=== PATIENT | female | born 1930 | race Two or more races ===

== ENCOUNTER 2017-02-05 08:55 | Observation (INO) | payer MEDICARE, BC ==
[~2017-02-05] VITALS: Ht 160 cm; Wt 89.0 kg
[~2017-02-05 08:55] MED LIST: APIX2.5T PO; ATEN50TA PO; ATOR20TA38 PO; CIPR500T4 PO; DOCU100C26 PO; HYDR4TAB PO; METH-493 PO; METR500T PO; PARO10TA76 PO; TRAM50TA2 PO
[2017-02-05 09:05] VITALS: Ht 160 cm; Wt 89.0 kg
[2017-02-05] MEDS ORDERED: CEFTRIAXONE 1 GM/50 ML (PMX) 50 ML IVPB STA (10:16)
[2017-02-05] MEDS ORDERED: AZITHROMYCIN 500MG/NS (PMX) 250 ML IV STA (10:16)
[2017-02-05] MEDS ORDERED: ALBUTEROL 0.083% (NEB) 2.5 MG/3 ML AMP INH ONE (10:30)
[2017-02-05] MEDS ORDERED: IPRATROPIUM (NEB) 0.5 MG/2.5 ML AMP INH ONE (10:30)
[2017-02-05 10:56] LABS: ADD SCAN DIFF NO
[2017-02-05 11:01] LABS: BASOPHILS % 0.2 % (0.0-2.0); EOSINOPHILS % 0.6 % (0.0-7.0); HEMATOCRIT 34.4 % (37.0-47.0); HEMOGLOBIN 11.3 g/dl (12.0-16.0); LYMPHOCYTES # 2.1 10^3/ul (0.8-2.9); LYMPHOCYTES % 42.7 % (15.0-51.0); MEAN CORPUSCULAR HEMOGLOBIN 29.4 pg (29.0-33.0); MEAN CORPUSCULAR HGB CONC 32.8 g/dl (32.0-37.0); MEAN CORPUSCULAR VOLUME 89.6 fl (82.0-101.0); MEAN PLATELET VOLUME 10.4 fl (7.4-10.4); MONOCYTE # 0.4 10^3/ul (0.3-0.9); MONOCYTES % 7.9 % (0.0-11.0); NEUTROPHIL # 2.3 10^3/ul (1.6-7.5); NEUTROPHILS % 48.4 % (39.0-77.0); PLATELET COUNT 255 10^3/UL (140-415); RED BLOOD COUNT 3.84 10^6/ul (4.20-5.40); WHITE BLOOD COUNT 4.8 10^3/ul (4.8-10.8)
[2017-02-05 11:16] LABS: ALBUMIN/GLOBULIN RATIO 1.53; BILIRUBIN,INDIRECT 0.1 mg/dl (0-1.1); BILIRUBIN,TOTAL 0.1 mg/dl (0.2-1.3); CALCIUM 8.5 mg/dl (8.4-10.2); CREATININE 0.6 mg/dl (0.44-1.00); POTASSIUM 4.1 mmol/L (3.5-5.1); TOTAL PROTEIN 6.6 g/dl (6.1-8.1)
[2017-02-05 11:30] LABS: TROPONIN-I 0.052 ng/ml (0.00-0.12)
[2017-02-05] MEDS ORDERED: GABA100C14 PO (11:49)
--- NOTE | 2017-02-05 11:51 | RADRPT ---
PROCEDURE: Chest Radiograph. CLINICAL INDICATION: Shortness of breath TECHNIQUE: Single frontal chest radiograph. COMPARISON: None available FINDINGS: The patient is rotated. Heart size is poorly evaluated but appears grossly within normal limits. A therosclerotic calcifications are present. No infiltrate or effusion is seen. The bones are int act. IMPRESSION: 1. No evidence of acute cardiopulmonary disease. 2. Atherosclerotic vascular disease. RPTAT: KK .Ambrocio Townsend MD, MD Date Time Electronically viewed and signed by .Ambrocio Townsend MD, MD on 02/05/2017 11:51 .B/
[2017-02-05 12:33] VITALS: TEMP 97.9
[2017-02-05] MEDS ORDERED: ALBUTEROL 0.5% (NEB) 2.5 MG/0.5 ML AMP INH STA (13:09)
[2017-02-05] MEDS ORDERED: METHYLPREDNISOLONE 125 MG INJ IV STA (13:11)
--- NOTE | 2017-02-05 13:54 | ERA ---
ER Documentation Chief Complaint Date/Time DATE: 02/05/17 TIME: 13:51 Chief Complaint cough x 8 days HPI This 86-year-old female here with her daughter who complains of patient's had a cough for 8 days now. The patient has a productive white yellowish cough on occasion was mostly dry. The patient's having some shortness of breath today with audible wheezing which is why they are here. The patient has not had any fever chest pain palpitations dizziness fever diarrhea vomiting. Patient denies any history of lung issues such as asthma or COPD. ROS All systems reviewed and are negative except as per history of present illness. Medications Home Meds Active Scripts Tramadol HCl (Tramadol HCl) 50 Mg Tablet, 50 MG PO Q4 Y for PAIN, #20 TAB Prov:VEGA RUIZ 03/19/16 Reported Medications Gabapentin* (Gabapentin*) 100 Mg Capsule, 100 MG PO QHS, #90 CAP 02/05/17 Docusate Sodium* (Doc-Q-Lace*) 100 Mg Capsule, 100 MG PO DAILY, CAP 03/19/16 Atorvastatin Calcium* (Atorvastatin Calcium*) 20 Mg Tablet, 20 MG PO QHS, #30 TAB 03/19/16 Atenolol* (Atenolol*) 50 Mg Tablet, 50 MG PO DAILY, #30 TAB 11/16/15 Methimazole* (Methimazole*) 5 Mg Tablet, 5 MG PO DAILY, TAB 11/16/15 Apixaban* (Eliquis*) 2.5 Mg Tablet, 5 MG PO BID, TAB 11/16/15 Paroxetine Hcl* (Paroxetine*) 10 Mg Tablet, 10 MG PO DAILY, TAB 11/16/15 Discontinued Reported Medications Hydromorphone Hcl* (Hydromorphone Hcl*) 4 Mg Tablet, 4 MG PO Q12 Y for PAIN, TAB 03/19/16 Discontinued Scripts Metronidazole* (Flagyl*) 500 Mg Tablet, 500 MG PO TID for 7 Days, TAB Prov:VEGA RUIZ 03/19/16 Ciprofloxacin Hcl* (Ciprofloxacin Hcl*) 500 Mg Tablet, 500 MG PO BID for 7 Days , TAB Prov:VEGA RUIZ 03/19/16 Allergies Allergies: Coded Allergies: Penicillins (Verified Allergy, Unknown, 03/19/16) PMhx/Soc Hx Alcohol Use: No Hx Substance Use: No Hx Tobacco Use: No FmHx Family History: No coronary disease Physical Exam Vitals Vital Signs Date Time Temp Pulse Resp B/P Pulse Ox O2 Delivery O2 Flow Rate FiO2 02/05/17 13:30 84 18 97 21 02/05/17 12:33 97.9 100 25 130/65 96 Room Air 02/05/17 10:52 Nasal Cannula 02/05/17 10:37 83 18 99 21 02/05/17 09:05 98.1 83 18 137/76 99 Physical Exam Const: Well-developed, well-nourished Head: Atraumatic, normocephalic Eyes: Normal Conjunctiva, PERRLA, EOMI, normal sclera, no nystagmus ENT: Normal External Ears, Nose and Mouth, moist mucus membranes. Neck: Full range of motion. No meningismus, no lymphadenopathy. Resp: Mild increased work of breathing with diffuse scattered expiratory wheezes] Cardio: Regular rate and rhythm, no murmurs, S1 S2 present Abd: Soft, non tender x 4, non distended. Normal bowel sounds, no guarding or rebound, no pulsitile abdominal masses or bruits Skin: No petechiae or rashes, no ecchymosis , no maculopapular rash Back: No midline or flank tenderness Ext: No cyanosis, or edema, FROM x 4, normal inspection, neurovascularly intact x 4 Neur: Awake and alert, STR 5/5 x 4, sensation intact x 4, no focal findings, cerebellum intact Psych: Normal Mood and Affect Result Diagram: 02/05/17 1045 02/05/17 1045 Results 24 hrs Laboratory Tests Test 02/05/17 10:45 02/05/17 11:16 White Blood Count 4.810^3/ul Red Blood Count 3.8410^6/ul Hemoglobin 11.3g/dl Hematocrit 34.4% Mean Corpuscular Volume 89.6fl Mean Corpuscular Hemoglobin 29.4pg Mean Corpuscular Hemoglobin Concent 32.8g/dl Red Cell Distribution Width 15.0% Platelet Count 61599^3/UL Mean Platelet Volume 10.4fl Neutrophils % 48.4% Lymphocytes % 42.7% Monocytes % 7.9% Eosinophils % 0.6% Basophils % 0.2% Nucleated Red Blood Cells % 0.0/100WBC Neutrophils # 2.310^3/ul Lymphocytes # 2.110^3/ul Monocytes # 0.410^3/ul Eosinophils # 0.010^3/ul Basophils # 0.010^3/ul Nucleated Red Blood Cells # 0.010^3/ul Sodium Level 136mmol/L Potassium Level 4.1mmol/L Chloride Level 103mmol/L Carbon Dioxide Level 27mmol/L Anion Gap 10 Blood Urea Nitrogen 14mg/dl Creatinine 0.60mg/dl Glucose Level 103mg/dl Calcium Level 8.5mg/dl Total Bilirubin 0.1mg/dl Direct Bilirubin 0.00mg/dl Indirect Bilirubin 0.1mg/dl Aspartate Amino Transf (AST/SGOT) 28IU/L Alanine Aminotransferase (ALT/SGPT) 27IU/L Alkaline Phosphatase 65IU/L Troponin I 0.052ng/ml B-Type Natriuretic Peptide 2110PG/ML Total Protein 6.6g/dl Albumin 4.0g/dl Globulin 2.60g/dl Albumin/Globulin Ratio 1.53 Lactic Acid Level 1.6mmol/L Current Medications Medications (Trade) Dose Ordered Sig/Laz Route PRN Reason Start Time Stop Time Status Last Admin Dose Admin Albuterol (Proventil 0.083% (Neb)) 7.5 mg ONCE ONCE INH 02/05/17 10:30 02/05/17 10:31 DC 02/05/17 10:36 Ipratropium [place] 0.5 mg 0.5 mg ONCE ONCE INH 02/05/17 10:30 02/05/17 10:31 DC 02/05/17 10:36 Azithromycin 250 ml @ 250 mls/hr ONCE STAT IV 02/05/17 10:16 02/05/17 11:15 DC 02/05/17 11:32 Ceftriaxone Sodium (Rocephin) 50 ml @ 100 mls/hr ONCE STAT IVPB 02/05/17 10:16 02/05/17 10:45 DC 02/05/17 11:32 Albuterol (Proventil 0.5% (Neb)) 10 mg ONCE STAT INH 02/05/17 13:09 02/05/17 13:11 DC 02/05/17 13:27 Methylprednisolone Sodium Succinate (Solu-Medrol) 125 mg ONCE STAT IV 02/05/17 13:11 02/05/17 13:13 DC 02/05/17 13:37 Procedures/MDM PROCEDURE: Chest Radiograph. CLINICAL INDICATION: Shortness of breath TECHNIQUE: Single frontal chest radiograph. COMPARISON: None available FINDINGS: The patient is rotated. Heart size is poorly evaluated but appears grossly within normal limits. Atherosclerotic calcifications are present. No infiltrate or effusion is seen. The bones are intact. IMPRESSION: 1. No evidence of acute cardiopulmonary disease. 2. Atherosclerotic vascular disease. RPTAT: KK .Ambrocio Townsend MD, MD Date Time Electronically viewed and signed by .Ambrocio Townsend MD, on 2016 11:51 .B/ CC: MABEL RODRIGUEZ DO Patient received some breathing treatments and was doing better. She did however began wheezing again. She then had more breathing treatments. After breathing treatments the patient's still having some diffuse audible wheezing with O2 sats 93-95% on 2 L nasal cannula. Patient does not have pneumonia or heart failure on her chest x-ray however., I will admit her to the hospital for continued pulmonary treatment. She likely has reactive airway disease/bronchitis. Departure Diagnosis: Primary Impression: Hypoxia Additional Impression: Bronchitis Condition: Stable MABEL RODRIGUEZ DO Feb 05, 2017 13:54
[2017-02-05] MEDS ORDERED: ACETAMINOPHEN 325 MG TAB PO PRN (15:00)
[2017-02-05] MEDS ORDERED: ONDANSETRON 4 MG INJ IV PRN (15:00)
--- NOTE | 2017-02-05 15:55 | HP ---
Date/Time of Note Date/Time of Note DATE: 02/05/17 TIME: 15:50 Assessment/Plan VTE Prophylaxis VTE Prophylaxis Intervention: LMWH Assessment/Plan Assessment/Plan 86-year-old female managed for the followin. Acute respiratory failure secondary to #2 2. Acute bronchitis rule out underlying asthma or COPD 3. Paroxysmal atrial fibrillation on Eliquis: Patient remains in sinus rhythm with mild tachycardia 4. Hypertension 5. Chronic arthritis and neuropathy 6. Dyslipidemia 7. Chronic depression 8. Obesity with BMI of 34 9. Hyperthyroidism on Methimazole Plan: * Inpatient management / round to clock bronchodilator therapy / empiric antibiotics * Telemetry monitoring. / 2D echo if none of recent * continue home meds and titrate inhouse for optimal control of co-morbidities * PRN pain control/ antiemetics/ antipyretics/ supportive care Prophylaxis: Lovenox / PPI HPI/ROS Admit Date/Time Admit Date/Time 02/05/17 Hx of Present Illness This is an 86-year-old female who was brought in by her daughter because of cough and shortness of breath that the patient states that it yesterday. I the patient is a non-smoker and has not had similar symptoms in a while. On preliminary ER examination she was found to be diffusely wheezing and required continuous breathing treatments when she first came in. She reports feeling a lot better at this time. She denies shortness of breath, but she has been having dry nonproductive cough. She denies extremity swelling she denies passing out episodes she also denies fever. Her last visit to this emergency room was back in February 2016 at that time she was seen for abdominal pain and diarrhea. She has no abdominal pain at this time she has no nausea vomiting. The patient well Norwegian-speaking only, is quite alert and oriented and is able to participate and give a detailed history. ROS ROS: CONSTITUTIONAL: denies fever, chills, weight loss, weight gain HEENT: denies headaches, any vertigo, any sore throat or rhinorrhea. Eyes: No double or blurred vision or eye pain. GASTROINTESTINAL: The patient denies any nausea, vomiting, diarrhea or abdominal pain. GENITOURINARY: denies dysuria, frequency, urgency or hematuria. MUSCULOSKELETAL: also denies myalgias, arthralgias or edema. SKIN: denies rash or jaundice NEUROLOGIC: denies weakness, dizziness, focal neurological change or headache. PSYCHIATRIC: denies history of depression in the past, any suicidal ideation. substance abuse. ENDOCRINE: denies polyuria, polydipsia or hot or cold intolerance. HEMATOLOGIC: denies history of easy bruising, anemia or eczema. PMH/Family/Social Past Medical History * HTN * Paroxysmal Afib * Arthritis Past Surgical History Past Surgical Hx: no surgical history Family History Significant Family History: no pertinent family hx Social History Alcohol Use: none Smoking Status: Never smoker Drug Use: none Exam/Review of Systems Vital Signs Vitals VS - Last 72 Hours, by Label Date Time Temp Pulse Resp B/P Pulse Ox O2 Delivery O2 Flow Rate FiO2 02/05/17 13:30 84 18 97 21 02/05/17 12:33 97.9 100 25 130/65 96 Room Air 02/05/17 10:52 Nasal Cannula 02/05/17 10:37 83 18 99 21 02/05/17 09:05 98.1 83 18 137/76 99 Vital Signs Date Time Temp Pulse Resp B/P Pulse Ox O2 Delivery O2 Flow Rate FiO2 02/05/17 13:30 84 18 97 21 02/05/17 12:33 97.9 130/65 Room Air Exam Constitutional: alert, oriented, other (obese, elderly) Psych: anxiety Head: normocephalic Eyes: PERRL ENMT: mucosa pink and moist Neck: supple, No jvd Respiratory: diminished breath sounds, wheezing Cardiovascular: nl pulses, regular rate and rhythm, No murmurs/extra sounds Gastrointestinal: bowel sounds, non-tender, soft Extremities: No edema Neurological: nl mental status, nl speech, No focal weakness Skin: No rash or lesions Labs Result Diagram: 02/05/17 1045 02/05/17 1045 Procedures Procedures Laboratory Tests Test 02/05/17 10:45 02/05/17 11:16 White Blood Count 4.810^3/ul Red Blood Count 3.8410^6/ul Hemoglobin 11.3g/dl Hematocrit 34.4% Mean Corpuscular Volume 89.6fl Mean Corpuscular Hemoglobin 29.4pg Mean Corpuscular Hemoglobin Concent 32.8g/dl Red Cell Distribution Width 15.0% Platelet Count 66157^3/UL Mean Platelet Volume 10.4fl Neutrophils % 48.4% Lymphocytes % 42.7% Monocytes % 7.9% Eosinophils % 0.6% Basophils % 0.2% Nucleated Red Blood Cells % 0.0/100WBC Neutrophils # 2.310^3/ul Lymphocytes # 2.110^3/ul Monocytes # 0.410^3/ul Eosinophils # 0.010^3/ul Basophils # 0.010^3/ul Nucleated Red Blood Cells # 0.010^3/ul Sodium Level 136mmol/L Potassium Level 4.1mmol/L Chloride Level 103mmol/L Carbon Dioxide Level 27mmol/L Anion Gap 10 Blood Urea Nitrogen 14mg/dl Creatinine 0.60mg/dl Glucose Level 103mg/dl Calcium Level 8.5mg/dl Total Bilirubin 0.1mg/dl Direct Bilirubin 0.00mg/dl Indirect Bilirubin 0.1mg/dl Aspartate Amino Transf (AST/SGOT) 28IU/L Alanine Aminotransferase (ALT/SGPT) 27IU/L Alkaline Phosphatase 65IU/L Troponin I 0.052ng/ml B-Type Natriuretic Peptide 2110PG/ML Total Protein 6.6g/dl Albumin 4.0g/dl Globulin 2.60g/dl Albumin/Globulin Ratio 1.53 Lactic Acid Level 1.6mmol/L Current Medications Medications (Trade) Dose Ordered Sig/Laz Route PRN Reason Start Time Stop Time Status Last Admin Dose Admin Albuterol (Proventil 0.083% (Neb)) 7.5 mg ONCE ONCE INH 02/05/17 10:30 02/05/17 10:31 DC 02/05/17 10:36 7.5 MG Ipratropium [place] 0.5 mg 0.5 mg ONCE ONCE INH 02/05/17 10:30 02/05/17 10:31 DC 02/05/17 10:36 0.5 MG Azithromycin 250 ml @ 250 mls/hr ONCE STAT IV 02/05/17 10:16 02/05/17 11:15 DC 02/05/17 11:32 250 MLS/HR Ceftriaxone Sodium (Rocephin) 50 ml @ 100 mls/hr ONCE STAT IVPB 02/05/17 10:16 02/05/17 10:45 DC 02/05/17 11:32 100 MLS/HR Albuterol (Proventil 0.5% (Neb)) 10 mg ONCE STAT INH 02/05/17 13:09 02/05/17 13:11 DC 02/05/17 13:27 10 MG Methylprednisolone Sodium Succinate (Solu-Medrol) 125 mg ONCE STAT IV 02/05/17 13:11 02/05/17 13:13 DC 02/05/17 13:37 125 MG Ondansetron HCl (Zofran Inj) 4 mg ER BRIDGE PRN IV NAUSEA AND/OR VOMITING 02/05/17 15:00 02/06/17 14:59 Acetaminophen (Tylenol Tab) 650 mg ER BRIDGE PRN PO MILD PAIN/FEVER 02/05/17 15:00 02/06/17 14:59 PROCEDURE: Chest Radiograph. CLINICAL INDICATION: Shortness of breath TECHNIQUE: Single frontal chest radiograph. COMPARISON: None available FINDINGS: The patient is rotated. Heart size is poorly evaluated but appears grossly within normal limits. Atherosclerotic calcifications are present. No infiltrate or effusion is seen. The bones are intact. IMPRESSION: 1. No evidence of acute cardiopulmonary disease. 2. Atherosclerotic vascular disease. RPTAT: KK .Ambrocio Townsend MD, MD Date Time Electronically viewed and signed by .Ambrocio Townsend MD, MD on 2016 11:51 .B/ CC: MABEL RODRIGUEZ DO I reviewed EKG Rate: Within normal limits Rhythm: sinus Note: No ST elevation or depressions noted concerning for acute ischemic event. YISSEL STEWART 12, 2017 15:55
[2017-02-05] MEDS ORDERED: IPRATROPIUM (NEB) 0.5 MG/2.5 ML AMP HHN PRN (16:00)
[2017-02-05] MEDS ORDERED: LEVALBUTEROL (NEB) 0.31 MG/3 ML AMP HHN PRN (16:00)
[2017-02-05] MEDS ORDERED: traMADol 50 MG TAB PO PRN (16:00)
[2017-02-05] MEDS: IPRATROPIUM (NEB) 0.5 MG/2.5 ML AMP HHN SCH ×2 (18:14→21:29)
[2017-02-05] MEDS: LEVALBUTEROL (NEB) 0.31 MG/3 ML AMP HHN SCH ×2 (18:14→21:29)
[2017-02-05 20:42] VITALS: PULSE 107
[2017-02-05] MEDS: APIXABAN 5 MG TABLET PO SCH (21:00)
[2017-02-05] MEDS: ATORVASTATIN 20 MG TAB PO SCH (21:00)
[2017-02-05] MEDS: GABAPENTIN 100 MG CAP PO SCH (21:00)
[2017-02-05 21:11] VITALS: BP 145/79; RESP 18
[2017-02-05 22:04] VITALS: PULSE 105
[2017-02-05 23:39] VITALS: BP 139/79; RESP 16
[2017-02-06] VITALS (11 sets, daily range): BP systolic 134–184; BP diastolic 64–86; PULSE 85–120; RESP 16–21
[2017-02-06] MEDS: LEVALBUTEROL (NEB) 0.31 MG/3 ML AMP HHN SCH ×6 (01:32→20:25)
[2017-02-06] MEDS: IPRATROPIUM (NEB) 0.5 MG/2.5 ML AMP HHN SCH ×6 (01:32→20:25)
[2017-02-06] MEDS ORDERED: AMLODIPINE 10 MG TAB PO ONE (04:00)
[2017-02-06] MEDS: PANTOPRAZOLE (EC) 40 MG TAB PO SCH (06:17)
[2017-02-06] MEDS ORDERED: ATENOLOL 50 MG TAB PO SCH (09:00)
[2017-02-06] MEDS: DOCUSATE SODIUM 100 MG CAP PO SCH (09:33)
[2017-02-06] MEDS: METHIMAZOLE 5 MG TAB PO SCH (09:34)
[2017-02-06] MEDS: APIXABAN 5 MG TABLET PO SCH ×2 (09:34→20:34)
[2017-02-06] MEDS: PAROXETINE 10 MG TAB PO SCH (09:34)
[2017-02-06 10:34] LABS: ADD SCAN DIFF NO
[2017-02-06 10:41] LABS: HEMATOCRIT 33.9 % (37.0-47.0); MEAN CORPUSCULAR HEMOGLOBIN 28.8 pg (29.0-33.0); MEAN CORPUSCULAR HGB CONC 32.4 g/dl (32.0-37.0); MEAN CORPUSCULAR VOLUME 88.7 fl (82.0-101.0); MEAN PLATELET VOLUME 10.3 fl (7.4-10.4); PLATELET COUNT 265 10^3/UL (140-415); RED BLOOD COUNT 3.82 10^6/ul (4.20-5.40); RED CELL DISTRIBUTION WIDTH 15.1 % (11.5-14.5); WHITE BLOOD COUNT 3.6 10^3/ul (4.8-10.8)
[2017-02-06 11:16] LABS: CREATININE 0.52 mg/dl (0.44-1.00); MAGNESIUM 1.4 mg/dl (1.7-2.5); POTASSIUM 4.4 mmol/L (3.5-5.1)
--- NOTE | 2017-02-06 13:11 | PN ---
Date/Time of Note Date/Time of Note DATE: 02/06/17 TIME: 13:08 Assessment/Plan VTE Prophylaxis VTE Prophylaxis Intervention: other (eliquis) Lines/Catheters IV Catheter Type (from Nrsg): Saline Lock Assessment/Plan Assessment/Plan 86-year-old female managed for the followin. Mild acute respiratory failure secondary to #2: improved 2. Acute bronchitis rule out underlying asthma or COPD 3. Paroxysmal atrial fibrillation on Eliquis: Patient remains in sinus rhythm with mild tachycardia 4. Hypertension 5. Chronic arthritis and neuropathy 6. Dyslipidemia 7. Chronic depression 8. Obesity with BMI of 34 9. Hyperthyroidism on Methimazole Plan: * Wean off O2 / ambulate / round to clock bronchodilator therapy / empiric antibiotics * Telemetry monitoring. / 2D echo if none of recent * increase atenolol * continue home meds and titrate inhouse for optimal control of co-morbidities * PRN pain control/ antiemetics/ antipyretics/ supportive care Prophylaxis: Lovenox / PPI Subjective 24 Hr Interval Summary Free Text/Dictation patient feels much better Still requiring oxygen at 3L Exam/Review of Systems Vital Signs Vitals Vital Signs Date Time Temp Pulse Resp B/P Pulse Ox O2 Delivery O2 Flow Rate FiO2 02/06/17 12:02 98.2 85 16 139/86 98 02/06/17 08:01 Nasal Cannula 2.0 02/05/17 13:30 21 Intake and Output 02/05/17 02/05/17 02/06/17 15:00 23:00 07:00 Intake Total 300 ml 170 ml Balance 300 ml 170 ml Exam Constitutional: alert, oriented, other (obese, elderly) Psych: anxiety Head: normocephalic Eyes: PERRL ENMT: mucosa pink and moist Neck: supple, No jvd Respiratory: diminished breath sounds L >>R, basal crackles L side Cardiovascular: nl pulses, regular rate and rhythm, No murmurs/extra sounds Gastrointestinal: bowel sounds, non-tender, soft Extremities: No edema Neurological: nl mental status, nl speech, No focal weakness Skin: No rash or lesions Results Result Diagram: 02/06/17 0935 02/06/17 0935 Results 24 hrs Laboratory Tests Test 02/06/17 09:35 White Blood Count 3.6 #L Red Blood Count 3.82 L Hemoglobin 11.0 L Hematocrit 33.9 L Mean Corpuscular Volume 88.7 Mean Corpuscular Hemoglobin 28.8 L Mean Corpuscular Hemoglobin Concent 32.4 Red Cell Distribution Width 15.1 H Platelet Count 265 Mean Platelet Volume 10.3 Neutrophils % Lymphocytes % Monocytes % Neutrophils # Lymphocytes # Monocytes # Sodium Level 136 Potassium Level 4.4 Chloride Level 100 Carbon Dioxide Level 27 Anion Gap 13 Blood Urea Nitrogen 11 Creatinine 0.52 Glucose Level 153 Calcium Level 9.0 Magnesium Level 1.4 L Thyroid Stimulating Hormone (TSH) Pending Free Thyroxine Index Pending Thyroxine (T4) Pending Triiodothyronine (T3) Uptake Pending Medications Medications Current Medications Apixaban (Eliquis) 5 mg BID PO Last administered on 02/06/17 09:34; Admin Dose 5 MG; Start 02/05/17 at 21:00 Atorvastatin Calcium (Lipitor) 20 mg QHS PO ; Start 02/05/17 at 21:00 Docusate Sodium (Colace) 100 mg DAILY PO Last administered on 02/06/17 09:33; Admin Dose 100 MG; Start 02/06/17 at 09:00 Gabapentin (Neurontin) 100 mg QHS PO ; Start 02/05/17 at 21:00 Methimazole (Tapazole) 5 mg DAILY PO Last administered on 02/06/17 09:34; Admin Dose 5 MG; Start 02/06/17 at 09:00 Paroxetine HCl (Paxil) 10 mg DAILY PO Last administered on 02/06/17 09:34; Admin Dose 10 MG; Start 02/06/17 at 09:00 Tramadol HCl (Ultram) 50 mg Q4H PRN PO PAIN; Start 02/05/17 at 16:00 Pantoprazole (Protonix Tab) 40 mg DAILY@06 PO Last administered on 02/06/17 06 :17; Admin Dose 40 MG; Start 02/06/17 at 06:00 Atenolol 100 mg 100 mg DAILY PO ; Start 02/07/17 at 09:00; Status UNV Magnesium Sulfate/ Sodium Chloride (Magnesium Sulfate/NS) 106 ml @ 35.333 mls/ hr ONCE ONCE IVPB ; Start 02/06/17 at 13:00; Stop 02/06/17 at 15:59; Status UNV Procedures Procedures PROCEDURE: Chest Radiograph. CLINICAL INDICATION: Shortness of breath TECHNIQUE: Single frontal chest radiograph. COMPARISON: None available FINDINGS: The patient is rotated. Heart size is poorly evaluated but appears grossly within normal limits. Atherosclerotic calcifications are present. No infiltrate or effusion is seen. The bones are intact. IMPRESSION: 1. No evidence of acute cardiopulmonary disease. 2. Atherosclerotic vascular disease. RPTAT: KK .Ambrocio Townsend MD, MD Date Time Electronically viewed and signed by .Ambrocio Townsend MD, on 2016 11:51 .B/ CC: MABEL RODRIGUEZ [place] M. Feb 06, 2017 13:11
[2017-02-06 13:30] LABS: LYMPHOCYTES # 1.2 10^3/ul (0.8-2.9); MONOCYTE # 0.3 10^3/ul (0.3-0.9); NEUTROPHIL # 2.2 10^3/ul (1.6-7.5)
[2017-02-06] MEDS ORDERED: FUROSEMIDE 20 MG INJ IV ONE (13:30)
[2017-02-06 14:09] LABS: T3 UPTAKE 40.2 % (23.5-40.5)
[2017-02-06 14:28] LABS: THYROID STIMULATING HORMONE 0.188 MIU/L (0.465-4.680)
[2017-02-06] MEDS ORDERED: ATENOLOL 50 MG TAB PO ONE (14:30)
[2017-02-06] MEDS ORDERED: MAGNESIUM SULFATE 3 GM in SOD CHLORIDE 0.9% 100 ML IVPB SCH (14:30)
[2017-02-06] MEDS ORDERED: hydrALAzine 20 MG INJ IV PRN (14:30)
[2017-02-06] MEDS: GABAPENTIN 100 MG CAP PO SCH (20:34)
[2017-02-06] MEDS: ATORVASTATIN 20 MG TAB PO SCH (20:34)
[2017-02-07] VITALS (10 sets, daily range): BP systolic 126–171; BP diastolic 71–91; PULSE 69–76; RESP 14–20
[2017-02-07] MEDS: IPRATROPIUM (NEB) 0.5 MG/2.5 ML AMP HHN SCH ×4 (00:06→13:56)
[2017-02-07] MEDS: LEVALBUTEROL (NEB) 0.31 MG/3 ML AMP HHN SCH ×4 (00:06→13:00)
[2017-02-07] MEDS: PANTOPRAZOLE (EC) 40 MG TAB PO SCH (06:25)
[2017-02-07] MEDS: METHIMAZOLE 5 MG TAB PO SCH (08:56)
[2017-02-07] MEDS: APIXABAN 5 MG TABLET PO SCH (08:56)
[2017-02-07] MEDS: PAROXETINE 10 MG TAB PO SCH (08:56)
[2017-02-07] MEDS: DOCUSATE SODIUM 100 MG CAP PO SCH (08:56)
[2017-02-07] MEDS ORDERED: ATENOLOL 50 MG TAB PO SCH (09:00)
[2017-02-07 10:33] LABS: ADD SCAN DIFF NO
[2017-02-07 10:47] LABS: BASOPHILS % 0.1 % (0.0-2.0); EOSINOPHILS % 0.1 % (0.0-7.0); HEMATOCRIT 39.3 % (37.0-47.0); HEMOGLOBIN 12.5 g/dl (12.0-16.0); LYMPHOCYTES # 2.5 10^3/ul (0.8-2.9); LYMPHOCYTES % 29.7 % (15.0-51.0); MEAN CORPUSCULAR HEMOGLOBIN 28.7 pg (29.0-33.0); MEAN CORPUSCULAR HGB CONC 31.8 g/dl (32.0-37.0); MEAN CORPUSCULAR VOLUME 90.1 fl (82.0-101.0); MEAN PLATELET VOLUME 10.2 fl (7.4-10.4); MONOCYTE # 0.7 10^3/ul (0.3-0.9); MONOCYTES % 8.2 % (0.0-11.0); NEUTROPHIL # 5.2 10^3/ul (1.6-7.5); NEUTROPHILS % 61.7 % (39.0-77.0); PLATELET COUNT 317 10^3/UL (140-415); RED BLOOD COUNT 4.36 10^6/ul (4.20-5.40); RED CELL DISTRIBUTION WIDTH 15.3 % (11.5-14.5); WHITE BLOOD COUNT 8.4 10^3/ul (4.8-10.8)
[2017-02-07 11:22] LABS: CALCIUM 9.1 mg/dl (8.4-10.2); CREATININE 0.63 mg/dl (0.44-1.00); POTASSIUM 4.3 mmol/L (3.5-5.1)
[2017-02-07] MEDS ORDERED: GUAI200T3 PO (13:27)
[2017-02-07] MEDS ORDERED: IPRA4AER INHALATION (13:27)
[2017-02-07] MEDS ORDERED: ATEN50TA PO (13:27)
[2017-02-07] MEDS ORDERED: FUROSEMIDE 20 MG INJ IV ONE (13:30)
[2017-02-07] MEDS ORDERED: LEVO750T25 PO (13:31)
[2017-02-07] MEDS ORDERED: LACT1CAP57 PO (13:31)
--- NOTE | 2017-02-07 13:32 | PDOCDIS ---
Discharge Instructions DIAGNOSIS Discharge Diagnosis: acute bronchitis CONDITION Patient Condition: Stable HOME CARE INSTRUCTIONS: Diet Instructions: Low Fat /Cholesterol ACTIVITY: Activity Restrictions: Slowly Increase Activity Rest between Activity OTHER ORDERS: Other Orders: Followup with your primary doctor within the next 1 week to ensure continued resolution of symptoms If you don't have one please let someone know, we can give you resources that may help you pick one. You may call Dr Jose Bob's office. he's accepting new patients Name, Degree: Jose Bob MD Specialty: Internal Medicine Comments: Office Address: [address] [place] [address] [place], [place] [id number] Office Office You may also call your insurance company to assign one to you. * Review your medication list with your nurse before leaving and if you need new prescriptions please let your nurse know. * I may have made changes to your home medications or given you new prescriptions, please let your primary doctor know as well. * Stay compliant with your medications and report any side effects to your PCP or pharmacist. * Return to the ER if you have any concerns and cannot reach your doctors or call your insurance company, they usually have a nurse that can help you. YISSEL STEWART. Feb 07, 2017 13:32
[2017-02-07] MEDS ORDERED: LEVOFLOXACIN 750MG/D5W (PMX) 150 ML IVPB SCH (15:00)
--- NOTE | 2017-02-07 19:01 | DS ---
Date/Time of Note Date/Time of Note DATE: 02/07/17 TIME: 18:58 Discharge Summary Admission/Discharge Info Admit Date/Time Feb 05, 2017 at 14:50 Discharge Date/Time Feb 07, 2017 at 17:30 Final Diagnosis 86-year-old female managed for the followin. Mild acute respiratory failure secondary to #2: improved 2. Acute bronchitis: improved 3. Paroxysmal atrial fibrillation on Eliquis: 4. Hypertension 5. Chronic arthritis and neuropathy 6. Dyslipidemia 7. Chronic depression 8. Obesity with BMI of 34 9. Hyperthyroidism on Methimazole . Patient Condition: Stable Consults None. . Hx of Present Illness This is an 86-year-old female who was brought in by her daughter because of cough and shortness of breath that the patient states that it yesterday. I the patient is a non-smoker and has not had similar symptoms in a while. On preliminary ER examination she was found to be diffusely wheezing and required continuous breathing treatments when she first came in. She reports feeling a lot better at this time. She denies shortness of breath, but she has been having dry nonproductive cough. She denies extremity swelling she denies passing out episodes she also denies fever. Her last visit to this emergency room was back in February 2016 at that time she was seen for abdominal pain and diarrhea. She has no abdominal pain at this time she has no nausea vomiting. The patient well [place]araguan-speaking only, is quite alert and oriented and is able to participate and give a detailed history. Hospital Course Extremely pleasant 86-year-old female who presented to the emergency room with shortness of breath and wheezing, she was managed for bronchitis with steroids, bronchodilator therapy and empiric antibiotics. She responded very well to the regimen. She also got 2 doses of intravenous Lasix to help with diuresis. She has done well and she is being discharged home in stable condition. She was hypoxic on admission requiring supplemental oxygen, however this is been successfully weaned off. Physical examination today's benign, the patient does still has some mild crackles in the left lung base, also air entry is reduced on the left than the right. But she is stable for discharge. She is recommended to follow-up with her primary care doctor within the next 1 week to ensure continued resolution of symptoms. She will be discharged home to complete antibiotic therapy as well as some bronchodilator therapy as well. Discharge plan has been discussed with patient and her daughter and they in agreement. . Home Meds Active Scripts Lactobacillus Rhamnosus* (Culturelle*) 1 Each Cap.sprink, 1 CAP PO BID for 5 Days, CAP Prov:YISSEL STEWART. 02/07/17 Levofloxacin* (Levaquin*) 750 Mg Tablet, 750 MG PO DAILY for 5 Days, TAB Prov:YISSEL STEWART 02/07/17 Guaifenesin (Guaifenesin) 200 Mg Tablet, 200 MG PO Q12 for 2 Days, TAB Prov:YISSEL STEWART . 02/07/17 Albuterol/Ipratropium* (Combivent Respimat*) 20-100 Mcg/Inh - 4 Gm Aer.w.adap, 1 PUFF INHALATION QID, #1 INHALER use every 4 hours for 2 days then as needed only Prov:YISSEL STEWART 02/07/17 Atenolol* (Atenolol*) 50 Mg Tablet, 100 MG PO DAILY for 30 Days, TAB 2 Refills Prov:YISSEL STEWART . 02/07/17 Tramadol HCl (Tramadol HCl) 50 Mg Tablet, 50 MG PO Q4 Y for PAIN, #20 TAB Prov:VEGA RUIZ 03/19/16 Reported Medications Gabapentin* (Gabapentin*) 100 Mg Capsule, 100 MG PO QHS, #90 CAP 02/05/17 Docusate Sodium* (Doc-Q-Lace*) 100 Mg Capsule, 100 MG PO DAILY, CAP 03/19/16 Atorvastatin Calcium* (Atorvastatin Calcium*) 20 Mg Tablet, 20 MG PO QHS, #30 TAB 03/19/16 Methimazole* (Methimazole*) 5 Mg Tablet, 5 MG PO DAILY, TAB 11/16/15 Apixaban* (Eliquis*) 2.5 Mg Tablet, 5 MG PO BID, TAB 11/16/15 Paroxetine Hcl* (Paroxetine*) 10 Mg Tablet, 10 MG PO DAILY, TAB 11/16/15 Discontinued Reported Medications Atenolol* (Atenolol*) 50 Mg Tablet, 50 MG PO DAILY, #30 TAB 11/16/15 Hydromorphone Hcl* (Hydromorphone Hcl*) 4 Mg Tablet, 4 MG PO Q12 Y for PAIN, TAB 03/19/16 Discontinued Scripts Metronidazole* (Flagyl*) 500 Mg Tablet, 500 MG PO TID for 7 Days, TAB Prov:VEGA RUIZ. 03/19/16 Ciprofloxacin Hcl* (Ciprofloxacin Hcl*) 500 Mg Tablet, 500 MG PO BID for 7 Days , TAB Prov:VEGA RUIZ S. 03/19/16 Follow-up Plan See hospital course. . Primary Care Provider Juan Luis Cuevas Time spent on discharge: > 30 minutes Pending Labs Laboratory Tests Test 02/07/17 09:12 White Blood Count 8.410^3/ul (4.8-10.8) Red Blood Count 4.3610^6/ul (4.20-5.40) Hemoglobin 12.5g/dl (12.0-16.0) Hematocrit 39.3% (37.0-47.0) Mean Corpuscular Volume 90.1fl (82.0-101.0) Mean Corpuscular Hemoglobin 28.7pg (29.0-33.0) Mean Corpuscular Hemoglobin Concent 31.8g/dl (32.0-37.0) Red Cell Distribution Width 15.3% (11.5-14.5) Platelet Count 63421^3/UL (140-415) Mean Platelet Volume 10.2fl (7.4-10.4) Neutrophils % 61.7% (39.0-77.0) Lymphocytes % 29.7% (15.0-51.0) Monocytes % 8.2% (0.0-11.0) Eosinophils % 0.1% (0.0-7.0) Basophils % 0.1% (0.0-2.0) Nucleated Red Blood Cells % 0.0/100WBC (0.0-0.0) Neutrophils # 5.210^3/ul (1.6-7.5) Lymphocytes # 2.510^3/ul (0.8-2.9) Monocytes # 0.710^3/ul (0.3-0.9) Eosinophils # 0.010^3/ul (0.0-0.5) Basophils # 0.010^3/ul (0.0-0.1) Nucleated Red Blood Cells # 0.010^3/ul (0.0-0.0) Sodium Level 134mmol/L (135-144) Potassium Level 4.3mmol/L (3.5-5.1) Chloride Level 94mmol/L (97-110) Carbon Dioxide Level 32mmol/L (21-31) Anion Gap 12 (8-16) Blood Urea Nitrogen 18mg/dl (7-20) Creatinine 0.63mg/dl (0.44-1.00) Glucose Level 95mg/dl (70-220) Calcium Level 9.1mg/dl (8.4-10.2) Magnesium Level 2.1mg/dl (1.7-2.5) YISSEL STEWART. Feb 07, 2017 19:01
== END 2017-02-07 17:30 | disposition home or self-care (01) ==
LOC: E/R 08:55 → MS4 14:50
PROVIDERS: ADMIT Family Medicine; ATTEND Family Medicine
DX: J20.9 Acute bronchitis, unspecified (principal); J96.01 Acute respiratory failure with hypoxia; I48.0 Paroxysmal atrial fibrillation; Z79.01 Long term (current) use of anticoagulants; I10 Essential (primary) hypertension; M19.90 Unspecified osteoarthritis, unspecified site; G62.9 Polyneuropathy, unspecified; E78.5 Hyperlipidemia, unspecified; F32.9 Major depressive disorder, single episode, unspecified; E66.9 Obesity, unspecified; Z68.34 Body mass index [BMI] 34.0-34.9, adult; E05.90 Thyrotoxicosis, unspecified without thyrotoxic crisis or storm; Z88.0 Allergy status to penicillin
CPT/HCPCS: 36415; 71010; 80048; 80053; 83605; 83735; 83880; 84436; 84443; 84479; 84484; 85025; 87040; 94640; 94644; 94645; 94664; 96365; 96366; 96368; 96374; 96375; 99285; G0378; J0360; J0456; J0696; J1940; J1956; J2930; J3475; 96360; 96361; 96372

== ENCOUNTER 2017-03-12 09:04 | Inpatient (IN) | payer MEDICARE, BC ==
[~2017-03-12] VITALS: Ht 160 cm; Wt 70.0 kg
[~2017-03-12 09:04] MED LIST changes: -CIPR500T4 PO; +GABA100C14 PO; +GUAI200T3 PO; -HYDR4TAB PO; +IPRA4AER INHALATION; +LACT1CAP57 PO; +LEVO750T25 PO; -METR500T PO
[2017-03-12] MEDS ORDERED: NITROGLYCERIN 2% 1 GM OINT PKT TD STA (10:03)
[2017-03-12] MEDS ORDERED: ASPIRIN 325 MG TAB PO STA (10:03)
--- NOTE | 2017-03-12 10:48 | RADRPT ---
PROCEDURE: XR Chest 1 view. CLINICAL INDICATION: Chest pain TECHNIQUE: AP views of the chest were obtained. COMPARISON: February 05, 2017 FINDINGS: The heart is large. Calcified atherosclerosis is noted in the aorta. No consolidations are identif ied. No pneumothorax is seen. The osseous structures are osteopenic, but appear grossly intact. Degenerative changes are identified in the shoulders. IMPRESSION: Cardiomegaly with calcified atherosclerosis in the aorta. Clear lungs. RPTAT: AA .Pool Acosta MD, Date Time Electronically viewed and signed by .Pool Acosta MD, on 03/12/2017 10:48 .P/
[2017-03-12 11:09] LABS: ADD SCAN DIFF NO
[2017-03-12 11:12] LABS: BASOPHILS % 0.3 % (0.0-2.0); EOSINOPHILS # 0.1 10^3/ul (0.0-0.5); EOSINOPHILS % 0.8 % (0.0-7.0); HEMATOCRIT 33.1 % (37.0-47.0); HEMOGLOBIN 10.4 g/dl (12.0-16.0); LYMPHOCYTES # 1.4 10^3/ul (0.8-2.9); LYMPHOCYTES % 14.4 % (15.0-51.0); MEAN CORPUSCULAR HEMOGLOBIN 28.7 pg (29.0-33.0); MEAN CORPUSCULAR HGB CONC 31.4 g/dl (32.0-37.0); MEAN CORPUSCULAR VOLUME 91.2 fl (82.0-101.0); MONOCYTE # 0.7 10^3/ul (0.3-0.9); MONOCYTES % 6.9 % (0.0-11.0); NEUTROPHIL # 7.7 10^3/ul (1.6-7.5); NEUTROPHILS % 77.3 % (39.0-77.0); PLATELET COUNT 299 10^3/UL (140-415); RED BLOOD COUNT 3.63 10^6/ul (4.20-5.40); RED CELL DISTRIBUTION WIDTH 15.9 % (11.5-14.5)
[2017-03-12 11:16] LABS: INR 1.07; PROTIME 13.9 Sec (12.2-14.2); PT RATIO 1.1
[2017-03-12 11:17] LABS: PARTIAL THROMBOPLASTIN TIME 34.7 Sec (25.0-35.0)
[2017-03-12 11:18] LABS: ALANINE AMINOTRANSFERASE 28 IU/L (13-69); ALBUMIN 4.1 g/dl (3.3-4.9); ALKALINE PHOSPHATASE 68 IU/L (42-121); ANION GAP 19 (8-16); ASPARTATE AMINO TRANSFERASE 25 IU/L (15-46); BILIRUBIN,INDIRECT 0.4 mg/dl (0-1.1); BILIRUBIN,TOTAL 0.4 mg/dl (0.2-1.3); BLOOD UREA NITROGEN 16 mg/dl (7-20); CALCIUM 9.1 mg/dl (8.4-10.2); CARBON DIOXIDE 27 mmol/L (21-31); CHLORIDE 100 mmol/L (97-110); CREATININE 0.61 mg/dl (0.44-1.00); GLUCOSE 122 mg/dl (70-220); POTASSIUM 3.7 mmol/L (3.5-5.1); SODIUM 142 mmol/L (135-144); TOTAL PROTEIN 7.5 g/dl (6.1-8.1)
[2017-03-12 11:30] LABS: B-TYPE NATRIURETIC PEPTIDE 2080 PG/ML (0-450)
[2017-03-12 11:56] LABS: TROPONIN-I < 0.012 ng/ml (0.00-0.12)
--- NOTE | 2017-03-12 13:52 | ERA ---
ER Documentation Chief Complaint Date/Time DATE: 03/12/17 TIME: 13:49 Chief Complaint CHEST PAIN SINCE LAST NIGHT. NO SOB. NON PROVOKED. NO DIAPHORESIS HPI This an 86-year-old female who came in today for chest pain. She states she has substernal chest pressure this morning with radiation to the arm with shortness of breath. The patient took sublingual nitroglycerin but it did not relieve her pain. The same pain a few months ago and took sublingual nitroglycerin and it resolved her pain. The daughter is here and states that she has also been having some dyspnea on exertion is worsening over the past week. She states that she cannot walk but a few feet without getting shortness of breath. The patient says her chest pain is currently gone. Denies any cough fever no abdominal pain palpitations or near syncope. Patient has known history of irregular heartbeat ROS All systems reviewed and are negative except as per history of present illness. Medications Home Meds Active Scripts Lactobacillus Rhamnosus* (Culturelle*) 1 Each Cap.sprink, 1 CAP PO BID for 5 Days, CAP Prov:TERRYYISSEL 02/07/17 Levofloxacin* (Levaquin*) 750 Mg Tablet, 750 MG PO DAILY for 5 Days, TAB Prov:TERRY,YISSEL Carrizales 02/07/17 Albuterol/Ipratropium* (Combivent Respimat*) 20-100 Mcg/Inh - 4 Gm Aer.w.adap, 1 PUFF INHALATION QID, #1 INHALER use every 4 hours for 2 days then as needed only Prov:TERRYYISSEL 02/07/17 Atenolol* (Atenolol*) 50 Mg Tablet, 100 MG PO DAILY for 30 Days, TAB 2 Refills Prov:TERRYYISSEL 02/07/17 Tramadol HCl (Tramadol HCl) 50 Mg Tablet, 50 MG PO Q4 Y for PAIN, #20 TAB Prov:VEGA RUIZ 03/19/16 Reported Medications Gabapentin* (Gabapentin*) 100 Mg Capsule, 100 MG PO QHS, #90 CAP 02/05/17 Docusate Sodium* (Doc-Q-Lace*) 100 Mg Capsule, 100 MG PO DAILY, CAP 03/19/16 Atorvastatin Calcium* (Atorvastatin Calcium*) 20 Mg Tablet, 20 MG PO QHS, #30 TAB 03/19/16 Methimazole* (Methimazole*) 5 Mg Tablet, 5 MG PO DAILY, TAB 11/16/15 Apixaban* (Eliquis*) 2.5 Mg Tablet, 5 MG PO BID, TAB 11/16/15 Paroxetine Hcl* (Paroxetine*) 10 Mg Tablet, 10 MG PO DAILY, TAB 11/16/15 Discontinued Scripts Guaifenesin (Guaifenesin) 200 Mg Tablet, 200 MG PO Q12 for 2 Days, TAB Prov:YISSEL STEWART. 02/07/17 Allergies Allergies: Coded Allergies: Penicillins (Verified Allergy, Unknown, 03/19/16) PMhx/Soc Hx Neurological Disorder: Yes (Neuropathy) Hx Alcohol Use: No Hx Substance Use: No Hx Tobacco Use: No Smoking Status: Never smoker FmHx Family History: No coronary disease Physical Exam Vitals Vital Signs Date Time Temp Pulse Resp B/P Pulse Ox O2 Delivery O2 Flow Rate FiO2 03/12/17 11:34 85 21 140/68 97 03/12/17 10:19 86 21 95/66 97 03/12/17 09:06 98.6 88 21 142/84 97 Physical Exam Const: Well-developed, well-nourished Head: Atraumatic, normocephalic Eyes: Normal Conjunctiva, PERRLA, EOMI, normal sclera, no nystagmus ENT: Normal External Ears, Nose and Mouth, moist mucus membranes. Neck: Full range of motion. No meningismus, no lymphadenopathy. Resp: Clear to auscultation bilaterally, no wheezing, rhonchi, rales Cardio: Regular rate and rhythm, no murmurs, S1 S2 present Abd: Soft, non tender x 4, non distended. Normal bowel sounds, no guarding or rebound, no pulsitile abdominal masses or bruits Skin: No petechiae or rashes, no ecchymosis , no maculopapular rash Back: No midline or flank tenderness Ext: No cyanosis, or edema, FROM x 4, normal inspection, neurovascularly intact x 4 Neur: Awake and alert, STR 5/5 x 4, sensation intact x 4, no focal findings, cerebellum intact Psych: Normal Mood and Affect Result Diagram: 7/17/17 0942 7/17/17 0942 Results 24 hrs Laboratory Tests Test 03/12/17 09:42 White Blood Count 10.010^3/ul Red Blood Count 3.6310^6/ul Hemoglobin 10.4g/dl Hematocrit 33.1% Mean Corpuscular Volume 91.2fl Mean Corpuscular Hemoglobin 28.7pg Mean Corpuscular Hemoglobin Concent 31.4g/dl Red Cell Distribution Width 15.9% Platelet Count 77854^3/UL Mean Platelet Volume 11.0fl Neutrophils % 77.3% Lymphocytes % 14.4% Monocytes % 6.9% Eosinophils % 0.8% Basophils % 0.3% Nucleated Red Blood Cells % 0.0/100WBC Neutrophils # 7.710^3/ul Lymphocytes # 1.410^3/ul Monocytes # 0.710^3/ul Eosinophils # 0.110^3/ul Basophils # 0.010^3/ul Nucleated Red Blood Cells # 0.010^3/ul Prothrombin Time 13.9Sec Prothrombin Time Ratio 1.1 INR International Normalized Ratio 1.07 Activated Partial Thromboplast Time 34.7Sec Sodium Level 142mmol/L Potassium Level 3.7mmol/L Chloride Level 100mmol/L Carbon Dioxide Level 27mmol/L Anion Gap 19 Blood Urea Nitrogen 16mg/dl Creatinine 0.61mg/dl Glucose Level 122mg/dl Calcium Level 9.1mg/dl Total Bilirubin 0.4mg/dl Direct Bilirubin 0.00mg/dl Indirect Bilirubin 0.4mg/dl Aspartate Amino Transf (AST/SGOT) 25IU/L Alanine Aminotransferase (ALT/SGPT) 28IU/L Alkaline Phosphatase 68IU/L Troponin I < 0.012ng/ml B-Type Natriuretic Peptide 2080PG/ML Total Protein 7.5g/dl Albumin 4.1g/dl Globulin 3.40g/dl Albumin/Globulin Ratio 1.20 Current Medications Medications (Trade) Dose Ordered Sig/Laz Route PRN Reason Start Time Stop Time Status Last Admin Dose Admin Aspirin (Aspirin) 325 mg ONCE STAT PO 03/12/17 10:03 03/12/17 10:05 DC Nitroglycerin (Nitroglycerin 2% Oint) 1 inch ONCE STAT TD 03/12/17 10:03 03/12/17 10:05 DC 03/12/17 10:15 Ondansetron HCl (Zofran Inj) 4 mg ER BRIDGE PRN IV NAUSEA AND/OR VOMITING 03/12/17 14:00 03/13/17 13:59 UNV Acetaminophen (Tylenol Tab) 650 mg ER BRIDGE PRN PO MILD PAIN/FEVER 03/12/17 14:00 03/13/17 13:59 UNV Procedures/MDM PROCEDURE: XR Chest 1 view. CLINICAL INDICATION: Chest pain TECHNIQUE: AP views of the chest were obtained. COMPARISON: February 05, 2017 FINDINGS: The heart is large. Calcified atherosclerosis is noted in the aorta. No consolidations are identified. No pneumothorax is seen. The osseous structures are osteopenic, but appear grossly intact. Degenerative changes are identified in the shoulders. IMPRESSION: Cardiomegaly with calcified atherosclerosis in the aorta. Clear lungs. RPTAT: AA .Pool Acosta MD, Date Time Electronically viewed and signed by .Pool Acosta MD, on 03/12/2017 10:48 .P/ CC: MABEL RODRIGUEZ DO EKG: Rate/Rhythm: Atrial fibrillation heart rate 94 QRS, ST, QT: NORMAL, QRS, QT] Impression: Atrial fibrillation Patient has elevated BNP this may be age-related. She has however symptomatic for CHF. Patient's symptoms are concerning for cardiac cause will require inpatient workup and continuous monitoring. Further w/u for ischemia, arrhythmia, PE or dissection will be deferred to the inpatient team. Accepting Care Team: Current data and ongoing care discussed. Time: Time of admission Primary Provider: Moody Consulting: [XOXOXO] Outstanding Data: none Departure Diagnosis: Primary Impression: Chest pain Qualified Code: R07.9 - Chest pain, unspecified type Condition: Stable MABEL RODRIGUEZ DO Mar 12, 2017 13:52
[2017-03-12] MEDS ORDERED: ACETAMINOPHEN 325 MG TAB PO PRN ×2 (14:00→15:30)
[2017-03-12] MEDS ORDERED: ONDANSETRON 4 MG INJ IV PRN ×2 (14:00→15:30)
[2017-03-12] MEDS ORDERED: MAGNESIUM HYDROXIDE 30ML CUP PO PRN (15:30)
[2017-03-12] MEDS ORDERED: morphine 2 MG INJ IV PRN (15:30)
[2017-03-12] MEDS ORDERED: HYDROCODONE/APAP (5/325) TAB PO PRN (15:30)
[2017-03-12] MEDS ORDERED: NA PHOSPHATE/BIPHOS 133 ML ENEMA PR PRN (15:30)
[2017-03-12] MEDS ORDERED: NITROGLYCERIN (SL) 0.4 MG TAB SL PRN (15:30)
[2017-03-12] MEDS ORDERED: LORAZEPAM 2 MG INJ IV PRN (15:30)
[2017-03-12] MEDS ORDERED: NACL 0.9% 3 ML SYG IV SCH (15:30)
[2017-03-12] MEDS ORDERED: hydrALAzine 20 MG INJ IV PRN (15:30)
[2017-03-12] MEDS ORDERED: DOCUSATE SODIUM 100 MG CAP PO PRN (15:30)
[2017-03-12] MEDS ORDERED: ALBUTEROL/IPRATROPIUM (NEB) 3 ML AMP HHN PRN (15:30)
[2017-03-12] MEDS ORDERED: NON-FORMULARY/PATIENT OWN MED (Albuterol/Ipratropium* (Combivent Respimat*) 1 PUFF) INHALATION SCH (17:00)
[2017-03-12] MEDS: IPRATROPIUM (HFA) 12.9 GM INHALER INH SCH ×2 (17:00→21:00)
[2017-03-12] MEDS ORDERED: GUAIFENESIN 20 MG/ML 5ML CUP PO PRN (17:00)
[2017-03-12] MEDS: ALBUTEROL 18 GM INHALER INH SCH ×2 (17:00→21:00)
--- NOTE | 2017-03-12 17:11 | HP ---
Date/Time of Note Date/Time of Note DATE: 03/12/17 TIME: 16:59 Assessment/Plan VTE Prophylaxis VTE Prophylaxis Intervention: other (Eliquis) Lines/Catheters IV C[facility]ter Type (from [facility]): [facility] Assessment/Plan Chief Complaint/Hosp Course 86-year-old prior history of high cholesterol, hypertension, hyperthyroidism, atrial fibrillation, bronchitis, presents with chest pain and shortness of breath, likely secondary to CHF exacerbation, also rule out acute coronary syndrome 1. Breath: Likely secondary to CHF exacerbation Admit patient to telemetry floor, keep head of the bed greater than 30, echocardiogram, cardiac consult, start IV Lasix for now, monitor ins and outs 2. Chest pain: Likely secondary to CHF, also rule out acute coronary syndrome -Will place patient on current cardiac medications, including nitroglycerin, oxygen, morphine as needed trend her troponins every 6 hours follow-up echocardiogram results follow-up cardiology recommendations 3. Hyperthyroidism: Continue Tapazole, consider checking thyroid panel 4. Chronic bronchitis: Monitor for now, duo nebs as needed 5. Atrial fibrillation: Continue Eliquis, monitor heart rate 6. Hypertension: Continue hydralazine as needed. Holding beta chaz secondary to #1. 7. GI ppx: PPI Problems: HPI/ROS Admit Date/Time Admit Date/Time Mar 12, 2017 at 15:28 Hx of Present Illness 86-year-old female past medical history of high cholesterol, essential hypertension, hyperthyroidism, depression, obesity, chronic bronchitis, atrial fibrillation on Eliquis, who presents with shortness of breath and chest pain. Per family, to be case not and continue this morning. She took nitro glycerin sublingual which did not relieve her symptoms. Denies any orthopnea or PND. No upper or lower GI bleeding, she did have some subjective fevers and some dizziness, but no loss of consciousness, no chills. No nausea vomiting, no diarrhea or constipation has been having mild extremity edema bilaterally. When she came into the ER today, her chest x-ray appeared to be clear, but her BNP was elevated slightly over 1999. Patient normally sees Dr. Hewitt rehabilitator in the clinic for her cardiac care. She states her last echocardiogram was approximately 1 year ago. PMH/Family/Social Past Surgical History Past Surgical Hx: other (Knee replacement, cataracts, tonsil surgery) Family History Significant Family History: no pertinent family hx Social History Alcohol Use: none Smoking Status: Never smoker Drug Use: none Exam/Review of Systems Vital Signs Vitals Vital Signs Date Time Temp Pulse Resp B/P Pulse Ox O2 Delivery O2 Flow Rate FiO2 03/12/17 11:34 85 21 140/68 97 03/12/17 09:06 98.6 Exam Exam General: Lying in bed, family at the bedside, no acute distress HEENT: Pupils equal round reactive to light, extraocular muscles intact Neck: Supple Respiratory: Mild crackles at the bases bilaterally Cardiovascular: Irregularly irregular GI: Soft, nontender, non-distended, no rebound or guarding, normal Muscular skeletal, trace pitting edema bilateral lower extremities to the ankles Neurologic: No focal deficits Labs Result Diagram: 03/12/1794103/12/17941 Medications Medications Current Medications Ondansetron HCl (Zofran Inj) 4 mg Q6H PRN IV NAUSEA AND/OR VOMITING; Start at 15:30 Acetaminophen (Tylenol Tab) 650 mg Q6H PRN PO PAIN LEVEL 1-3 OR FEVER; Start at 15:30 Acetaminophen/ Hydrocodone Bitart (Rousseau (5/325)) 1 tab Q6H PRN PO MODERATE PAIN LEVEL 4-6; Start 03/12/17 at 15:30 Morphine Sulfate (morphine) 2 mg Q4H PRN IV SEVERE PAIN LEVEL 7-10; Start 03/12 at 15:30 Docusate Sodium (Colace) 100 mg Q12H PRN PO CONSTIPATION; Start 03/12/17 at 15: 30 Magnesium Hydroxide (Milk Of Mag) 30 ml DAILY PRN PO CONSTIPATION; Start at 15:30 Sodium Biphosphate/ Sodium Phosphate (Fleet Enema) 133 ml DAILY PRN OR CONSTIPATION; Start 03/12/17 at 15:30 Pantoprazole (Protonix Iv) 40 mg DAILY@06 IV ; Start 03/13/17 at 06:00 Lorazepam (Ativan) 0.5 mg Q6H PRN IV ANXIETY; Start 03/12/17 at 15:30 Hydralazine HCl (Apresoline) 10 mg Q6H PRN IV ELEVATED BLOOD PRESSURE; Start at 15:30 Nitroglycerin (Nitroglycerin (Sl Tab) 0.4 Mg) 1 tab Q5M PRN SL ANGINA; Start at 15:30 Apixaban (Eliquis) 5 mg BID PO ; Start 03/12/17 at 21:00 Atorvastatin Calcium (Lipitor) 20 mg QHS PO ; Start 03/12/17 at 21:00 Docusate Sodium (Colace) 100 mg DAILY PO ; Start 03/13/17 at 09:00 Gabapentin (Neurontin) 100 mg QHS PO ; Start 03/12/17 at 21:00 Lactobacillus Acidophilus/ Rhamnosus (Culturelle) 1 cap BID PO ; Start 03/12/17 at 21:00 Methimazole (Tapazole) 5 mg DAILY PO ; Start 03/13/17 at 09:00 Paroxetine HCl (Paxil) 10 mg DAILY PO ; Start 03/13/17 at 09:00 Albuterol (Ventolin Hfa) 1 puff QID INH ; Start 03/12/17 at 17:00 Ipratropium Endeavor (Atrovent Hfa) 1 puff QID INH ; Start 03/12/17 at 17:00 Guaifenesin (Robitussin Liquid Cup) 200 mg Q4H PRN PO COUGH; Start 03/12/17 at 17:00; Status DEMETRIO HUFFMAN Mar 12, 2017 17:10
[2017-03-12] MEDS: FUROSEMIDE 40 MG INJ IV SCH (17:35)
[2017-03-12 19:29] VITALS: BP 123/79; PULSE 95; RESP 16
[2017-03-12 20:00] VITALS: BP 128/85; PULSE 96; RESP 15
[2017-03-12 20:11] LABS: CREATINE KINASE 22 IU/L (23-200)
[2017-03-12 20:22] LABS: CK-MB 0.27 ng/ml (0.0-2.4)
[2017-03-12 20:23] LABS: TROPONIN-I < 0.012 ng/ml (0.00-0.12)
[2017-03-12] MEDS: ATORVASTATIN 20 MG TAB PO SCH (20:54)
[2017-03-12] MEDS: GABAPENTIN 100 MG CAP PO SCH (20:54)
[2017-03-12] MEDS: APIXABAN 5 MG TABLET PO SCH (20:54)
[2017-03-12] MEDS: LACTOBACILLUS RHAMNOSUS CAP PO SCH (21:00)
[2017-03-12] MEDS ORDERED: HEPARIN 5,000 UNIT/0.5 ML VIAL SC SCH (21:00)
[2017-03-13] VITALS (11 sets, daily range): BP systolic 117–155; BP diastolic 67–97; PULSE 88–117; RESP 15–20
[2017-03-13 00:21] LABS: CREATINE KINASE 33 IU/L (23-200)
[2017-03-13 00:35] LABS: TROPONIN-I < 0.012 ng/ml (0.00-0.12)
[2017-03-13] MEDS: PANTOPRAZOLE 40 MG INJ IV SCH (05:41)
[2017-03-13] MEDS: FUROSEMIDE 40 MG INJ IV SCH ×2 (05:42→17:43)
[2017-03-13 06:16] LABS: CHOL/HDL RATIO 2.2 RATIO
[2017-03-13 06:39] LABS: THYROID STIMULATING HORMONE 2.44 MIU/L (0.465-4.680)
[2017-03-13 07:59] LABS: ADD SCAN DIFF NO
[2017-03-13 08:06] LABS: BASOPHILS % 0.4 % (0.0-2.0); EOSINOPHILS # 0.2 10^3/ul (0.0-0.5); EOSINOPHILS % 1.6 % (0.0-7.0); HEMATOCRIT 35.6 % (37.0-47.0); HEMOGLOBIN 11.6 g/dl (12.0-16.0); LYMPHOCYTES # 1.7 10^3/ul (0.8-2.9); LYMPHOCYTES % 16.7 % (15.0-51.0); MEAN CORPUSCULAR HEMOGLOBIN 29.1 pg (29.0-33.0); MEAN CORPUSCULAR HGB CONC 32.6 g/dl (32.0-37.0); MEAN CORPUSCULAR VOLUME 89.4 fl (82.0-101.0); MONOCYTE # 0.6 10^3/ul (0.3-0.9); MONOCYTES % 6.3 % (0.0-11.0); NEUTROPHIL # 7.6 10^3/ul (1.6-7.5); NEUTROPHILS % 74.5 % (39.0-77.0); PLATELET COUNT 317 10^3/UL (140-415); RED BLOOD COUNT 3.98 10^6/ul (4.20-5.40); RED CELL DISTRIBUTION WIDTH 15.8 % (11.5-14.5); WHITE BLOOD COUNT 10.2 10^3/ul (4.8-10.8)
[2017-03-13 08:32] LABS: CREATINE KINASE 24 IU/L (23-200)
[2017-03-13 08:34] LABS: CALCIUM 9.1 mg/dl (8.4-10.2); CREATININE 0.74 mg/dl (0.44-1.00); MAGNESIUM 1.2 mg/dl (1.7-2.5); PHOSPHORUS 4.8 mg/dl (2.5-4.9); POTASSIUM 3.9 mmol/L (3.5-5.1)
[2017-03-13 08:45] LABS: CK-MB 0.46 ng/ml (0.0-2.4)
[2017-03-13 08:48] LABS: TROPONIN-I < 0.012 ng/ml (0.00-0.12)
[2017-03-13] MEDS: ALBUTEROL 18 GM INHALER INH SCH ×4 (09:00→20:51)
[2017-03-13] MEDS: IPRATROPIUM (HFA) 12.9 GM INHALER INH SCH ×4 (09:00→20:51)
[2017-03-13] MEDS ORDERED: REGADENOSON 0.4 MG/5 ML SYG ONE (12:27)
--- NOTE | 2017-03-13 13:00 | CONS ---
Date/Time of Note Date/Time of Note DATE: 03/13/17 TIME: 12:52 Assessment/Plan Assessment/Plan Chief Complaint/Hosp Course IMP: 1.Chest pain-negative trop x 3 2. sob-asses for chf 3.AF-some mild RVR 4.HTN 5.Dylipidemia 6. Hyperthyroid REcc: -Tele -serial ecg's -Contiue eliquis -start BB -Contiue lasix diuresis -Continue tapazole -lexiscan stress test today Problems: Consultation Date/Type/Reason Admit Date/Time Mar 12, 2017 at 15:28 Initial Consult Date 03/12/2017 Type of Consultation: cardiology Reason for Consultation sob/cp Referring Provider: YISSEL STEWART Exam/Review of Systems Vital Signs Vitals Vital Signs Date Time Temp Pulse Resp B/P Pulse Ox O2 Delivery O2 Flow Rate FiO2 03/13/17 12:07 117 03/13/17 11:44 97.9 18 128/69 98 03/12/17 20:00 Nasal Cannula 2.0 Intake and Output 03/12/17 03/12/17 03/13/17 15:00 23:00 07:00 Intake Total 250 ml Output Total 850 ml Balance -600 ml Exam Review of Systems: CONSTITUTIONAL: No fevers, chills. PULMONARY: mild sob CARDIOVASCULAR: intermittent chest pain GASTROINTESTINAL: No nausea/vomiting. GENITOURINARY: No hematuria/dysuria. MUSCULOSKELETAL: No myagias/arthalgias. PSYCHIATRIC: The patient denies depression. NEUROLOGIC: No weakness Constitutional: alert, oriented Psych: no complaints Head: normocephalic ENMT: mucosa pink and moist Neck: jvd (8-9 cm water), supple Respiratory: clear to auscultation Cardiovascular: regular rate and rhythm Gastrointestinal: non-tender, soft Musculoskeletal: muscle tone (normal) Extremities: edema (none) Neurological: other (No focal deficits) Results Result Diagram: 03/13/17 0709 03/13/17 0709 Results 24 hrs Laboratory Tests Test 03/12/17 19:15 03/12/17 23:59 03/13/17 05:02 03/13/17 07:09 Creatine Kinase 22 L 33 24 Creatine Kinase Index 1.2 0.9 1.9 Creatinine Kinase MB (Mass) 0.27 0.30 0.46 Troponin I < 0.012 < 0.012 < 0.012 Hemoglobin A1c 5.8 Triglycerides Level 65 Cholesterol Level 119 LDL Cholesterol, Calculated 54 HDL Cholesterol 52 Cholesterol/HDL Ratio 2.2 Thyroid Stimulating Hormone (TSH) 2.440 White Blood Count 10.2 Red Blood Count 3.98 L Hemoglobin 11.6 L Hematocrit 35.6 L Mean Corpuscular Volume 89.4 Mean Corpuscular Hemoglobin 29.1 Mean Corpuscular Hemoglobin Concent 32.6 Red Cell Distribution Width 15.8 H Platelet Count 317 Mean Platelet Volume 11.0 H Neutrophils % 74.5 Lymphocytes % 16.7 Monocytes % 6.3 Eosinophils % 1.6 Basophils % 0.4 Nucleated Red Blood Cells % 0.0 Neutrophils # 7.6 H Lymphocytes # 1.7 Monocytes # 0.6 Eosinophils # 0.2 Basophils # 0.0 Nucleated Red Blood Cells # 0.0 Sodium Level 143 Potassium Level 3.9 Chloride Level 98 Carbon Dioxide Level 28 Anion Gap 21 H Blood Urea Nitrogen 17 Creatinine 0.74 Glucose Level 96 Calcium Level 9.1 Phosphorus Level 4.8 Magnesium Level 1.2 L Medications Medications Current Medications Ondansetron HCl (Zofran Inj) 4 mg Q6H PRN IV NAUSEA AND/OR VOMITING; Start at 15:30 Acetaminophen (Tylenol Tab) 650 mg Q6H PRN PO PAIN LEVEL 1-3 OR FEVER; Start at 15:30 Acetaminophen/ Hydrocodone Bitart (Pender (5/325)) 1 tab Q6H PRN PO MODERATE PAIN LEVEL 4-6; Start 03/12/17 at 15:30 Morphine Sulfate (morphine) 2 mg Q4H PRN IV SEVERE PAIN LEVEL 7-10 Last administered on 03/12/17 20:54; Admin Dose 2 MG; Start 03/12/17 at 15:30 Docusate Sodium (Colace) 100 mg Q12H PRN PO CONSTIPATION; Start 03/12/17 at 15: 30 Magnesium Hydroxide (Milk Of Mag) 30 ml DAILY PRN PO CONSTIPATION; Start at 15:30 Sodium Biphosphate/ Sodium Phosphate (Fleet Enema) 133 ml DAILY PRN OR CONSTIPATION; Start 03/12/17 at 15:30 Pantoprazole (Protonix Iv) 40 mg DAILY@06 IV Last administered on 03/13/17 05: 41; Admin Dose 40 MG; Start 03/13/17 at 06:00 Lorazepam (Ativan) 0.5 mg Q6H PRN IV ANXIETY Last administered on 03/12/17 21: 34; Admin Dose 0.5 MG; Start 03/12/17 at 15:30 Hydralazine HCl (Apresoline) 10 mg Q6H PRN IV ELEVATED BLOOD PRESSURE; Start at 15:30 Nitroglycerin (Nitroglycerin (Sl Tab) 0.4 Mg) 1 tab Q5M PRN SL ANGINA; Start at 15:30 Apixaban (Eliquis) 5 mg BID PO Last administered on 03/12/17 20:54; Admin Dose 5 MG; Start 03/12/17 at 21:00 Atorvastatin Calcium (Lipitor) 20 mg QHS PO Last administered on 03/12/17 20: 54; Admin Dose 20 MG; Start 03/12/17 at 21:00 Docusate Sodium (Colace) 100 mg DAILY PO ; Start 03/13/17 at 09:00 Gabapentin (Neurontin) 100 mg QHS PO Last administered on 03/12/17 20:54; Admin Dose 100 MG; Start 03/12/17 at 21:00 Lactobacillus Acidophilus/ Rhamnosus (Culturelle) 1 cap BID PO ; Start 03/12/17 at 21:00 Methimazole (Tapazole) 5 mg DAILY PO ; Start 03/13/17 at 09:00 Paroxetine HCl (Paxil) 10 mg DAILY PO ; Start 03/13/17 at 09:00 Albuterol (Ventolin Hfa) 1 puff QID INH ; Start 03/12/17 at 17:00 Ipratropium Aurora (Atrovent Hfa) 1 puff QID INH ; Start 03/12/17 at 17:00 Guaifenesin (Robitussin Liquid Cup) 200 mg Q4H PRN PO COUGH; Start 03/12/17 at 17:00 ARCELIA BENTLEY Mar 13, 2017 13:00
--- NOTE | 2017-03-13 14:16 | PN ---
Date/Time of Note Date/Time of Note DATE: 03/13/17 TIME: 14:10 Assessment/Plan VTE Prophylaxis VTE Prophylaxis Intervention: other (Eliquis) Lines/Catheters IV Catheter Type (from [facility]): [place] [facility] Urinary Cath still in place: No Assessment/Plan Chief Complaint/Hosp Course 86-year-old prior history of high cholesterol, hypertension, hyperthyroidism, atrial fibrillation, bronchitis, presents with chest pain and shortness of breath, likely secondary to CHF exacerbation, also rule out acute coronary syndrome 1. SOB: Likely secondary to CHF exacerbation, now improving. -Continue head of the bed greater than 30, follow-up echocardiogram results and cardiac consult recommendations -Continue IV Lasix for now, monitor ins and outs 2. Chest pain: Likely secondary to CHF, has ruled out for acute coronary syndrome now. -Continue current cardiac medications, including nitroglycerin, oxygen, morphine -Follow-up cardiology recommendations, as well as stress test results. 3. Hyperthyroidism: Continue Tapazole, follow-up thyroid panel 4. Chronic bronchitis: Monitor for now, duo nebs as needed 5. Atrial fibrillation: Continue Eliquis, monitor heart rate 6. Hypertension: Continue hydralazine as needed, now back on beta-chaz as well. 7. GI ppx: PPI Problems: Subjective 24 Hr Interval Summary Free Text/Dictation Patient has less shortness of breath. Seen by cardiology team. Awaiting cardiac stress test to be performed. Exam/Review of Systems Vital Signs Vitals Vital Signs Date Time Temp Pulse Resp B/P Pulse Ox O2 Delivery O2 Flow Rate FiO2 03/13/17 12:07 117 03/13/17 11:44 97.9 18 128/69 98 03/12/17 20:00 Nasal Cannula 2.0 Intake and Output 03/12/17 03/12/17 03/13/17 15:00 23:00 07:00 Intake Total 250 ml Output Total 850 ml Balance -600 ml Exam General: Lying in bed, family at the bedside, no acute distress HEENT: Pupils equal round reactive to light, extraocular muscles intact Neck: Supple Respiratory: Less crackles at the bases bilaterally Cardiovascular: Irregularly irregular GI: Soft, nontender, non-distended, no rebound or guarding, normal Muscular skeletal, trace pitting edema bilateral lower extremities to the ankles Neurologic: No focal deficits Results Result Diagram: 03/13/17 0709 03/13/17 0709 Results 24 hrs Laboratory Tests Test 03/12/17 19:15 03/12/17 23:59 03/13/17 05:02 03/13/17 07:09 Creatine Kinase 22 L 33 24 Creatine Kinase Index 1.2 0.9 1.9 Creatinine Kinase MB (Mass) 0.27 0.30 0.46 Troponin I < 0.012 < 0.012 < 0.012 Hemoglobin A1c 5.8 Triglycerides Level 65 Cholesterol Level 119 LDL Cholesterol, Calculated 54 HDL Cholesterol 52 Cholesterol/HDL Ratio 2.2 Thyroid Stimulating Hormone (TSH) 2.440 White Blood Count 10.2 Red Blood Count 3.98 L Hemoglobin 11.6 L Hematocrit 35.6 L Mean Corpuscular Volume 89.4 Mean Corpuscular Hemoglobin 29.1 Mean Corpuscular Hemoglobin Concent 32.6 Red Cell Distribution Width 15.8 H Platelet Count 317 Mean Platelet Volume 11.0 H Neutrophils % 74.5 Lymphocytes % 16.7 Monocytes % 6.3 Eosinophils % 1.6 Basophils % 0.4 Nucleated Red Blood Cells % 0.0 Neutrophils # 7.6 H Lymphocytes # 1.7 Monocytes # 0.6 Eosinophils # 0.2 Basophils # 0.0 Nucleated Red Blood Cells # 0.0 Sodium Level 143 Potassium Level 3.9 Chloride Level 98 Carbon Dioxide Level 28 Anion Gap 21 H Blood Urea Nitrogen 17 Creatinine 0.74 Glucose Level 96 Calcium Level 9.1 Phosphorus Level 4.8 Magnesium Level 1.2 L Medications Medications Current Medications Ondansetron HCl (Zofran Inj) 4 mg Q6H PRN IV NAUSEA AND/OR VOMITING; Start at 15:30 Acetaminophen (Tylenol Tab) 650 mg Q6H PRN PO PAIN LEVEL 1-3 OR FEVER; Start at 15:30 Acetaminophen/ Hydrocodone Bitart ([place] (5/325)) 1 tab Q6H PRN PO MODERATE PAIN LEVEL 4-6; Start 03/12/17 at 15:30 Morphine Sulfate (morphine) 2 mg Q4H PRN IV SEVERE PAIN LEVEL 7-10 Last administered on 03/12/17t 20:54; Admin Dose 2 MG; Start 03/12/17 at 15:30 Docusate Sodium (Colace) 100 mg Q12H PRN PO CONSTIPATION; Start 03/12/17 at 15: 30 Magnesium Hydroxide (Milk Of Mag) 30 ml DAILY PRN PO CONSTIPATION; Start at 15:30 Sodium Biphosphate/ Sodium Phosphate (Fleet Enema) 133 ml DAILY PRN [place] CONSTIPATION; Start 03/12/17 at 15:30 Pantoprazole (Protonix Iv) 40 mg DAILY@06 IV Last administered on 03/13/17 05: 41; Admin Dose 40 MG; Start 03/13/17 at 06:00 Lorazepam (Ativan) 0.5 mg Q6H PRN IV ANXIETY Last administered on 03/12/17 21: 34; Admin Dose 0.5 MG; Start 03/12/17 at 15:30 Hydralazine HCl (Apresoline) 10 mg Q6H PRN IV ELEVATED BLOOD PRESSURE; Start at 15:30 Nitroglycerin (Nitroglycerin (Sl Tab) 0.4 Mg) 1 tab Q5M PRN SL ANGINA; Start at 15:30 Apixaban (Eliquis) 5 mg BID PO Last administered on 03/12/17 20:54; Admin Dose 5 MG; Start 03/12/17 at 21:00 Atorvastatin Calcium (Lipitor) 20 mg QHS PO Last administered on 03/12/17 20: 54; Admin Dose 20 MG; Start 03/12/17 at 21:00 Docusate Sodium (Colace) 100 mg DAILY PO ; Start 03/13/17 at 09:00 Gabapentin (Neurontin) 100 mg QHS PO Last administered on 03/12/17 20:54; Admin Dose 100 MG; Start 03/12/17 at 21:00 Lactobacillus Acidophilus/ Rhamnosus (Culturelle) 1 cap BID PO ; Start 03/12/17 at 21:00 Methimazole (Tapazole) 5 mg DAILY PO ; Start 03/13/17 at 09:00 Paroxetine HCl (Paxil) 10 mg DAILY PO ; Start 03/13/17 at 09:00 Albuterol (Ventolin Hfa) 1 puff QID INH ; Start 03/12/17 at 17:00 Ipratropium [place] (Atrovent Hfa) 1 puff QID INH ; Start 03/12/17 at 17:00 Guaifenesin (Robitussin Liquid Cup) 200 mg Q4H PRN PO COUGH; Start 03/12/17 at 17:00 Metoprolol Tartrate 25 mg 25 mg BID PO ; Start 03/13/17 at 21:00 Magnesium Sulfate (Magnesium Sulfate 4 Gm/100 ml) 100 ml @ 25 mls/hr ONCE ONCE IVPB ; Start 03/13/17 at 14:30; Stop 03/13/17 at 18:29; Status DEMETRIO HUFFMAN Mar 13, 2017 14:16
[2017-03-13] MEDS: LACTOBACILLUS RHAMNOSUS CAP PO SCH ×2 (15:04→20:48)
[2017-03-13] MEDS: APIXABAN 5 MG TABLET PO SCH ×2 (15:04→20:48)
[2017-03-13] MEDS: DOCUSATE SODIUM 100 MG CAP PO SCH (15:05)
[2017-03-13] MEDS: PAROXETINE 10 MG TAB PO SCH (15:08)
[2017-03-13] MEDS: METHIMAZOLE 5 MG TAB PO SCH (15:08)
[2017-03-13] MEDS ORDERED: MAGNESIUM SULFATE 4 GM/100 ML 100 ML IVPB ONE (16:00)
--- NOTE | 2017-03-13 16:08 | RADRPT ---
PROCEDURE: Lexiscan myocardial perfusion study CLINICAL INDICATION: 86 -year-old patient complaining of chest pain. TECHNIQUE: Lexiscan 0.4 mg intravenously separate acquisition gated myocardial perfusion SPECT usi ng Tc 99m Myoview 30.1 mCi intravenously at stress and Tc-99m Myoview, 10.0 mCi intravenously at res t was performed using the rest/stress sequence. Poststress Myoview SPECT images were obtained in th e supine position. COMPARISON: No prior studies. FINDINGS: Perfusion images reveal no evidence of perfusion defects. Lexiscan post stress gated SPECT images demonstrate no wall motion abnormalities. IMPRESSION: 1. Normal study with no evidence of perfusion defects or wall motion abnormalities. 2. The left ventricle ejection fraction at stress is greater than 70%. A call report was made to Dr. Suazo at 04:07 p.m. on March 13, 2017. RPTAT: HH .Emilia Frey MD, Date Time Electronically viewed and signed by .Emilia Frey MD, on 03/13/2017 16:08 .L/
--- NOTE | 2017-03-13 17:31 | RADRPT ---
Echocardiogram Report Patient Name: OPAL GONZALEZ Gender: Female Date: 1930 Study Date: 13-Mar-2017 Strap Cutter: Sofie Woods [facility] Location: 5539 Ref. Physician: ARCELIA SUAZO Quality: Good Procedures: Transthoracic echocardiogram with complete 2D, M-Mode, and doppler examination. Indications: Congestive Heart Failure. 2D/M Mode Doppler Measurement Value Normal Ranges Measurement Value Normal Ranges LVIDd 2D 3.0 3.5 - 5.6 cm AV Mean Sergo 0.7 m/sec LVIDs 2D 2.3 2.1 - 4.1 cm AV Mean PG 2.0 mmHg LVPWd 2D 1.1 0.6 - 1.1 cm AV Peak Sergo 0.9 m/sec IVSd 2D 1.1 0.6 - 1.1 cm AV Peak PG 3.6 mmHg AoR Diam 2D 2.7 2.0 - 3.7 cm AV VTI 18.1 cm EDV 2D 36.0 cm3 LVOT Peak Sergo 0.8 m/sec ESV 2D 12.0 cm3 LVOT Peak PG 2.3 mmHg LA Dimen 2D 3.9 2.3 - 4.0 cm TR Peak Sergo 2.6 m/sec TR Peak PG 26.7 mmHg RVSP 30.0 mmHg Findings Left Ventricle: Normal left ventricular systolic function. Normal left ventricular cavity size. Normal left ventricular wall thickness. Ejection fraction is visually estimated at 60 %. Abnormal Diastolic Function. Right Ventricle: Normal right ventricular size. Normal right ventricular systolic function. Left Atrium: The left atrium is normal in size. Right Atrium: The right atrium is normal in size. Mitral Valve: Normal appearance and function of the mitral valve with trace physiologic regurgitation. Aortic Valve: Normal appearance of the aortic valve. No significant aortic stenosis or insufficiency. Tricuspid Valve: Normal appearance of the tricuspid valve. Estimated peak PA systolic pressure 30 mmHg. There is mild tricuspid regurgitation. Pulmonic Valve: Pulmonic valve not well visualized. Pericardium: Normal pericardium with no significant pericardial effusion. Aorta: Normal aortic root. IVC: Normal size and normal respiratory collapse consistent with normal right atrial pressure. Conclusions 1.Normal left ventricular systolic function. Normal left ventricular cavity size. Normal left ventricular wall thickness. Ejection fraction is visually estimated at 60 %. Abnormal Diastolic Function. 2.Normal appearance and function of the mitral valve with trace physiologic regurgitation. 3.Normal appearance of the tricuspid valve. Estimated peak PA systolic pressure 30 mmHg. There is mild tricuspid regurgitation. Electronically Signed By: Arcelia Suazo 13-Mar-2017 17:29:52 -0700 Patient Name: OPAL GONZALEZ Study Date: 13-Mar-2017 [id number]
--- NOTE | 2017-03-13 17:36 | RADRPT ---
Vent Rate: 101 bpm RR Interval: 0 msec MI Interval: 0 msec QRS Duration: 76 msec QT Interval: 342 msec QTC Interval: 443 msec P-R-T [place]: 0 - 11 - 28 degrees Atrial fibrillation with rapid ventricular response RSR apos; orattern in V1 suggests right ventricular conduction delay Abnormal ECG Electronically Signed By: Rodolfo Suazo [id number]
[2017-03-13] MEDS: GABAPENTIN 100 MG CAP PO SCH (20:48)
[2017-03-13] MEDS: ATORVASTATIN 20 MG TAB PO SCH (20:48)
[2017-03-13] MEDS: METOPROLOL 25 MG TAB PO SCH (20:49)
[2017-03-14] VITALS (9 sets, daily range): BP systolic 114–122; BP diastolic 62–78; PULSE 78–92; RESP 19
[2017-03-14] MEDS: FUROSEMIDE 40 MG INJ IV SCH (05:24)
[2017-03-14] MEDS: PANTOPRAZOLE 40 MG INJ IV SCH (05:24)
[2017-03-14] MEDS: LACTOBACILLUS RHAMNOSUS CAP PO SCH (08:26)
[2017-03-14] MEDS: PAROXETINE 10 MG TAB PO SCH (08:26)
[2017-03-14] MEDS: METHIMAZOLE 5 MG TAB PO SCH (08:26)
[2017-03-14] MEDS: METOPROLOL 25 MG TAB PO SCH (08:28)
[2017-03-14] MEDS: APIXABAN 5 MG TABLET PO SCH (08:28)
[2017-03-14 08:31] LABS: ADD SCAN DIFF NO
[2017-03-14 08:43] LABS: BASOPHILS % 0.4 % (0.0-2.0); EOSINOPHILS # 0.3 10^3/ul (0.0-0.5); EOSINOPHILS % 3.5 % (0.0-7.0); HEMATOCRIT 38.1 % (37.0-47.0); HEMOGLOBIN 12.3 g/dl (12.0-16.0); LYMPHOCYTES # 1.5 10^3/ul (0.8-2.9); MEAN CORPUSCULAR HEMOGLOBIN 28.3 pg (29.0-33.0); MEAN CORPUSCULAR HGB CONC 32.3 g/dl (32.0-37.0); MEAN CORPUSCULAR VOLUME 87.6 fl (82.0-101.0); MEAN PLATELET VOLUME 10.7 fl (7.4-10.4); MONOCYTE # 0.6 10^3/ul (0.3-0.9); MONOCYTES % 7.2 % (0.0-11.0); NEUTROPHIL # 5.9 10^3/ul (1.6-7.5); NEUTROPHILS % 70.2 % (39.0-77.0); PLATELET COUNT 361 10^3/UL (140-415); RED BLOOD COUNT 4.35 10^6/ul (4.20-5.40); RED CELL DISTRIBUTION WIDTH 15.7 % (11.5-14.5); WHITE BLOOD COUNT 8.4 10^3/ul (4.8-10.8)
[2017-03-14 08:51] LABS: CALCIUM 8.9 mg/dl (8.4-10.2); CREATININE 0.83 mg/dl (0.44-1.00); POTASSIUM 3.2 mmol/L (3.5-5.1)
[2017-03-14 08:56] LABS: MAGNESIUM 2.1 mg/dl (1.7-2.5); PHOSPHORUS 4.8 mg/dl (2.5-4.9)
[2017-03-14] MEDS: DOCUSATE SODIUM 100 MG CAP PO SCH (09:00)
--- NOTE | 2017-03-14 10:08 | CARRPT ---
DATE OF PROCEDURE: 03/13/2017 INDICATION: Chest pain. Shortness of breath. Vascular ischemia. FINDINGS: Baseline vital signs and electrocardiogram: Pulse 99, blood pressure 117/69. Electrocardiogram reveals atrial fibrillation, rate 101, normal axis, normal intervals, with nonspecific ST-T wave abnormalities diffusely. PROCEDURE: Patient Lexiscan infusion. Protocol was 10 seconds, followed by . The patient's test was stopped due to completion of protocol. Maximal achieved blood pressure during the test of 123/66. Maximum heart rate during test 114. ECG findings: Patient developing new Lexiscan-induced ST-T wave changes from baseline abnormalities. No documented PVCs. Symptoms: The patient had complaints of shortness of breath, abdominal discomfort and headache which resolved during recovery. IMPRESSION: 1. No Lexiscan-induced ST-T changes from baseline abnormalities or diagnostic cardiac ischemia. 2. No complaints of chest pain during testing. Positive shortness of breath which resolved recovery during recovery. 3. No documented PVCs or . 4. Reported . Dictated By: Magaly Ventura /alphonso/bob /Document#: [id number] CC: Tramaine Tenorio MD;*End*
--- NOTE | 2017-03-14 11:57 | PDOCDIS ---
Discharge Instructions CONDITION Patient Condition: Stable HOME CARE INSTRUCTIONS: Diet Instructions: Low Fat /CholesterolSpecial Diet: CARDIAC ACTIVITY: Activity Restrictions: Slowly Increase Activity FOLLOW UP/APPOINTMENTS Follow-up Plan Please take your medications as prescribed. Please follow-up with your primary doctor in the clinic in the next 1 week. DEMETRIO TAMAYO Mar 14, 2017 11:56
--- NOTE | 2017-03-14 12:00 | DS ---
Date/Time of Note Date/Time of Note DATE: 03/14/17 TIME: 11:58 Discharge Summary Admission/Discharge Info Admit Date/Time Mar 12, 2017 at 15:28 Discharge Date/Time Discharge Diagnosis 1. SOB: Likely secondary to CHF exacerbation, now improving. 2. Chest pain: Likely secondary to CHF, has ruled out for acute coronary syndrome now. 3. Hyperthyroidism: Continue Tapazole, follow-up thyroid panel 4. Chronic bronchitis: Monitor for now, duo nebs as needed 5. Atrial fibrillation: Continue Eliquis, monitor heart rate 6. Hypertension: Patient Condition: Stable Hx of Present Illness . Hospital Course 86-year-old female past medical history of high cholesterol, essential hypertension, hyperthyroidism, depression, obesity, chronic bronchitis, atrial fibrillation on Eliquis, who presents with shortness of breath and chest pain. Per family, to be case not and continue this morning. She took nitro glycerin sublingual which did not relieve her symptoms. Denies any orthopnea or PND. No upper or lower GI bleeding, she did have some subjective fevers and some dizziness, but no loss of consciousness, no chills. No nausea vomiting, no diarrhea or constipation has been having mild extremity edema bilaterally. When she came into the ER today, her chest x-ray appeared to be clear, but her BNP was elevated slightly over 1999. Patient normally sees Dr. Hewitt artist mannequin coloring in the clinic for her cardiac care. She states her last echocardiogram was approximately 1 year ago. Patient was admitted to telemetry floor, seen by cardiology team. She underwent diuresis as well. She ruled out for acute coronary syndrome. She had nuclear cardiac stress test which was essentially negative. Over the course of her hospital stay she was seen by Occupational Therapy and physical therapy as well, her breathing symptoms improved, she was able to ambulate and tolerated p.o. diet. Once case management has set up her home health needs, she will be discharged home today in improved condition. Please see below for full discharge medication list. Home Meds Active Scripts Lactobacillus Rhamnosus* (Culturelle*) 1 Each Cap.sprink, 1 CAP PO BID for 5 Days, CAP Prov:TERRYYISSEL Carrizales 02/07/17 Albuterol/Ipratropium* (Combivent Respimat*) 20-100 Mcg/Inh - 4 Gm Aer.w.adap, 1 PUFF INHALATION QID, #1 INHALER use every 4 hours for 2 days then as needed only Prov:YISSEL STEWARTRhianna 02/07/17 Atenolol* (Atenolol*) 50 Mg Tablet, 100 MG PO DAILY for 30 Days, TAB 2 Refills Prov:YISSEL STEWARTRhianna 02/07/17 Tramadol HCl (Tramadol HCl) 50 Mg Tablet, 50 MG PO Q4 Y for PAIN, #20 TAB Prov:VEGA RUIZ 03/19/16 Reported Medications Gabapentin* (Gabapentin*) 100 Mg Capsule, 100 MG PO QHS, #90 CAP 02/05/17 Docusate Sodium* (Doc-Q-Lace*) 100 Mg Capsule, 100 MG PO DAILY, CAP 03/19/16 Atorvastatin Calcium* (Atorvastatin Calcium*) 20 Mg Tablet, 20 MG PO QHS, #30 TAB 03/19/16 Apixaban* (Eliquis*) 2.5 Mg Tablet, 5 MG PO BID, TAB 11/16/15 Paroxetine Hcl* (Paroxetine*) 10 Mg Tablet, 10 MG PO DAILY, TAB 11/16/15 Discontinued Reported Medications Methimazole* (Methimazole*) 5 Mg Tablet, 5 MG PO DAILY, TAB 11/16/15 Discontinued Scripts Levofloxacin* (Levaquin*) 750 Mg Tablet, 750 MG PO DAILY for 5 Days, TAB Prov:YISSEL STEWARTRhianna 02/07/17 Guaifenesin (Guaifenesin) 200 Mg Tablet, 200 MG PO Q12 for 2 Days, TAB Prov:YISSEL STEWARTRhianna 02/07/17 Primary Care Provider Juan Luis Cuevas Time spent on discharge: > 30 minutes Pending Labs Laboratory Tests Test 03/14/17 07:56 White Blood Count 8.410^3/ul (4.8-10.8) Red Blood Count 4.3510^6/ul (4.20-5.40) Hemoglobin 12.3g/dl (12.0-16.0) Hematocrit 38.1% (37.0-47.0) Mean Corpuscular Volume 87.6fl (82.0-101.0) Mean Corpuscular Hemoglobin 28.3pg (29.0-33.0) Mean Corpuscular Hemoglobin Concent 32.3g/dl (32.0-37.0) Red Cell Distribution Width 15.7% (11.5-14.5) Platelet Count 52311^3/UL (140-415) Mean Platelet Volume 10.7fl (7.4-10.4) Neutrophils % 70.2% (39.0-77.0) Lymphocytes % 18.0% (15.0-51.0) Monocytes % 7.2% (0.0-11.0) Eosinophils % 3.5% (0.0-7.0) Basophils % 0.4% (0.0-2.0) Nucleated Red Blood Cells % 0.0/100WBC (0.0-0.0) Neutrophils # 5.910^3/ul (1.6-7.5) Lymphocytes # 1.510^3/ul (0.8-2.9) Monocytes # 0.610^3/ul (0.3-0.9) Eosinophils # 0.310^3/ul (0.0-0.5) Basophils # 0.010^3/ul (0.0-0.1) Nucleated Red Blood Cells # 0.010^3/ul (0.0-0.0) Sodium Level 140mmol/L (135-144) Potassium Level 3.2mmol/L (3.5-5.1) Chloride Level 93mmol/L (97-110) Carbon Dioxide Level 30mmol/L (21-31) Anion Gap 20 (8-16) Blood Urea Nitrogen 28mg/dl (7-20) Creatinine 0.83mg/dl (0.44-1.00) Glucose Level 103mg/dl (70-220) Calcium Level 8.9mg/dl (8.4-10.2) Phosphorus Level 4.8mg/dl (2.5-4.9) Magnesium Level 2.1mg/dl (1.7-2.5) DEMETRIO TAMAYO Mar 14, 2017 12:00
--- NOTE | 2017-03-14 13:14 | CONS ---
Date/Time of Note Date/Time of Note DATE: 03/14/17 TIME: 13:12 Assessment/Plan Assessment/Plan Chief Complaint/Hosp Course IMP:. 1.Chest pain-negative trop x 3. NO ischemia by lexiscan EF. NO CP ongoing 2. sob-asses for chf. good volume status by exam 3.AF-rate conbtrolled 4.HTN 5.Dylipidemia 6. Hyperthyroid-on tapazole REcc: -Tele -serial ecg's -Contiue eliquis -Continue BB -Contiue lasix diuresis -Continue tapazole -D/C planning with outpatient f/u Problems: Consultation Date/Type/Reason Admit Date/Time Mar 12, 2017 at 15:28 Initial Consult Date 03/12/2017 Type of Consultation: cardiology Reason for Consultation chest pain/CHF Referring Provider: YISSEL STEWART Exam/Review of Systems Vital Signs Vitals Vital Signs Date Time Temp Pulse Resp B/P Pulse Ox O2 Delivery O2 Flow Rate FiO2 03/14/17 12:20 78 03/14/17 11:51 98.4 19 114/77 98 03/14/17 07:59 2.0 03/14/17 07:48 Nasal Cannula Intake and Output 03/13/17 03/13/17 03/14/17 15:00 23:00 07:00 Intake Total 480 ml 350 ml Balance 480 ml 350 ml Exam Review of Systems: CONSTITUTIONAL: No fevers, chills. PULMONARY: No sob CARDIOVASCULAR: No chest pain/palpitations GASTROINTESTINAL: No nausea/vomiting. GENITOURINARY: No hematuria/dysuria. MUSCULOSKELETAL: No myagias/arthalgias. PSYCHIATRIC: The patient denies depression. NEUROLOGIC: No weakness Constitutional: alert Psych: no complaints Head: normocephalic ENMT: mucosa pink and moist Neck: jvd (9 cm water), supple Respiratory: clear to auscultation Cardiovascular: regular rate and rhythm Gastrointestinal: non-tender, soft Musculoskeletal: muscle tone (normal) Extremities: edema Neurological: other (No focal deficits) Results Result Diagram: 03/14/17 0756 03/14/17 0756 Results 24 hrs Laboratory Tests Test 03/14/17 07:56 White Blood Count 8.4 Red Blood Count 4.35 Hemoglobin 12.3 Hematocrit 38.1 Mean Corpuscular Volume 87.6 Mean Corpuscular Hemoglobin 28.3 L Mean Corpuscular Hemoglobin Concent 32.3 Red Cell Distribution Width 15.7 H Platelet Count 361 Mean Platelet Volume 10.7 H Neutrophils % 70.2 Lymphocytes % 18.0 Monocytes % 7.2 Eosinophils % 3.5 Basophils % 0.4 Nucleated Red Blood Cells % 0.0 Neutrophils # 5.9 Lymphocytes # 1.5 Monocytes # 0.6 Eosinophils # 0.3 Basophils # 0.0 Nucleated Red Blood Cells # 0.0 Sodium Level 140 Potassium Level 3.2 L Chloride Level 93 L Carbon Dioxide Level 30 Anion Gap 20 H Blood Urea Nitrogen 28 #H Creatinine 0.83 Glucose Level 103 Calcium Level 8.9 Phosphorus Level 4.8 Magnesium Level 2.1 Medications Medications Current Medications Ondansetron HCl (Zofran Inj) 4 mg Q6H PRN IV NAUSEA AND/OR VOMITING; Start at 15:30 Acetaminophen (Tylenol Tab) 650 mg Q6H PRN PO PAIN LEVEL 1-3 OR FEVER Last administered on 03/14/17 08:37; Admin Dose 650 MG; Start 03/12/17 at 15:30 Acetaminophen/ Hydrocodone Bitart ([place] (5/325)) 1 tab Q6H PRN PO MODERATE PAIN LEVEL 4-6; Start 03/12/17 at 15:30 Morphine Sulfate (morphine) 2 mg Q4H PRN IV SEVERE PAIN LEVEL 7-10 Last administered on 03/12/17 20:54; Admin Dose 2 MG; Start 03/12/17 at 15:30 Docusate Sodium (Colace) 100 mg Q12H PRN PO CONSTIPATION; Start 03/12/17 at 15: 30 Magnesium Hydroxide (Milk Of Mag) 30 ml DAILY PRN PO CONSTIPATION; Start at 15:30 Sodium Biphosphate/ Sodium Phosphate (Fleet Enema) 133 ml DAILY PRN [place] CONSTIPATION; Start 03/12/17 at 15:30 Pantoprazole (Protonix Iv) 40 mg DAILY@06 IV Last administered on 03/14/17 05: 24; Admin Dose 40 MG; Start 03/13/17 at 06:00 Lorazepam (Ativan) 0.5 mg Q6H PRN IV ANXIETY Last administered on 03/12/17 21: 34; Admin Dose 0.5 MG; Start 03/12/17 at 15:30 Hydralazine HCl (Apresoline) 10 mg Q6H PRN IV ELEVATED BLOOD PRESSURE; Start at 15:30 Nitroglycerin (Nitroglycerin (Sl Tab) 0.4 Mg) 1 tab Q5M PRN SL ANGINA; Start at 15:30 Apixaban (Eliquis) 5 mg BID PO Last administered on 03/14/17 08:28; Admin Dose 5 MG; Start 03/12/17 at 21:00 Atorvastatin Calcium (Lipitor) 20 mg QHS PO Last administered on 03/13/17 20: 48; Admin Dose 20 MG; Start 03/12/17 at 21:00 Docusate Sodium (Colace) 100 mg DAILY PO Last administered on 03/13/17 15:05; Admin Dose 100 MG; Start 03/13/17 at 09:00 Gabapentin (Neurontin) 100 mg QHS PO Last administered on 03/13/17 20:48; Admin Dose 100 MG; Start 03/12/17 at 21:00 Lactobacillus Acidophilus/ Rhamnosus (Culturelle) 1 cap BID PO Last administered on 03/14/17 08:26; Admin Dose 1 CAP; Start 03/12/17 at 21:00 Methimazole (Tapazole) 5 mg DAILY PO Last administered on 03/14/17 08:26; Admin Dose 5 MG; Start 03/13/17 at 09:00 Paroxetine HCl (Paxil) 10 mg DAILY PO Last administered on 03/14/17 08:26; Admin Dose 10 MG; Start 03/13/17 at 09:00 Albuterol (Ventolin Hfa) 1 puff QID INH ; Start 03/12/17 at 17:00 Ipratropium [place] (Atrovent Hfa) 1 puff QID INH ; Start 03/12/17 at 17:00 Guaifenesin (Robitussin Liquid Cup) 200 mg Q4H PRN PO COUGH; Start 03/12/17 at 17:00 Metoprolol Tartrate (Lopressor) 25 mg BID PO Last administered on 03/14/17 08: 28; Admin Dose 25 MG; Start 03/13/17 at 21:00 ARCELIA BENTLEY 19, 2017 13:14
== END 2017-03-14 18:34 | disposition home health service (06) | DRG 293 ==
LOC: E/R 09:04 → MS3 15:28 → MS4 19:58
PROVIDERS: ADMIT Hospitalist; ATTEND Hospitalist
DX: I11.0 Hypertensive heart disease with heart failure (principal); G62.9 Polyneuropathy, unspecified; I48.91 Unspecified atrial fibrillation; Z79.01 Long term (current) use of anticoagulants; E05.90 Thyrotoxicosis, unspecified without thyrotoxic crisis or storm; J42 Unspecified chronic bronchitis; Z88.0 Allergy status to penicillin; I50.9 Heart failure, unspecified; E78.00 Pure hypercholesterolemia, unspecified
CPT/HCPCS: 36415; 71010; 78452; 80048; 80053; 80061; 82550; 82553; 83036; 83735; 83880; 84100; 84439; 84443; 84484; 85025; 85610; 85730; 92610; 93005; 93017; 93306; 97110; 97116; 97162; 97167; 97530; A9500; A9505; C9113; J1940; J2060; J2270; J2785

== ENCOUNTER 2017-07-07 20:44 | Inpatient (IN) | payer MEDICARE, BC ==
[~2017-07-07] VITALS: Ht 154.9 cm; Wt 75.4 kg
[~2017-07-07 20:44] MED LIST changes: -GUAI200T3 PO; -LEVO750T25 PO; -METH-493 PO
[2017-07-07] MEDS ORDERED: ASPIRIN 325 MG TAB PO STA (20:49)
[2017-07-07] MEDS ORDERED: morphine 2 MG INJ IV STA (20:49)
[2017-07-07 21:18] LABS: BASOPHILS % 0.2 % (0.0-2.0); EOSINOPHILS # 0.1 10^3/ul (0.0-0.5); EOSINOPHILS % 0.8 % (0.0-7.0); HEMOGLOBIN 10.7 g/dl (12.0-16.0); LYMPHOCYTES # 1.9 10^3/ul (0.8-2.9); LYMPHOCYTES % 14.2 % (15.0-51.0); MEAN CORPUSCULAR HEMOGLOBIN 28.5 pg (29.0-33.0); MEAN CORPUSCULAR HGB CONC 30.6 g/dl (32.0-37.0); MEAN CORPUSCULAR VOLUME 93.1 fl (82.0-101.0); MEAN PLATELET VOLUME 10.5 fl (7.4-10.4); MONOCYTES % 7.1 % (0.0-11.0); NEUTROPHIL # 10.3 10^3/ul (1.6-7.5); NEUTROPHILS % 77.4 % (39.0-77.0); PLATELET COUNT 280 10^3/UL (140-415); RED BLOOD COUNT 3.76 10^6/ul (4.20-5.40); RED CELL DISTRIBUTION WIDTH 15.2 % (11.5-14.5); WHITE BLOOD COUNT 13.3 10^3/ul (4.8-10.8)
[2017-07-07 21:36] LABS: ANION GAP 12 (8-16); BLOOD UREA NITROGEN 23 mg/dl (7-20); CALCIUM 8.7 mg/dl (8.4-10.2); CARBON DIOXIDE 31 mmol/L (21-31); CHLORIDE 100 mmol/L (97-110); CREATININE 0.65 mg/dl (0.44-1.00); GLUCOSE 124 mg/dl (70-220); POTASSIUM 4.2 mmol/L (3.5-5.1); SODIUM 139 mmol/L (135-144)
[2017-07-07] MEDS ORDERED: ONDANSETRON 4 MG INJ IV ONE (21:42)
--- NOTE | 2017-07-07 21:46 | ERD ---
ER Documentation Chief Complaint Chief Complaint pain in chest w/ breathing x 1 hr, swollen ankles since 1500 today HPI This 86-year-old female presents with chest pain described as a pressure-like tightness across the entire chest as well as increased severe shortness of breath for 1 hour. She has had shortness of breath on and off progressively for a week. This is on exertion more severely but also at rest. She also has increased ankle swelling. She is probably diagnosed congestive heart failure and was on Lasix in the hospital in February was discharged without any Lasix. She also has nausea ROS All systems reviewed and are negative except as per history of present illness. Medications Home Meds Active Scripts Lactobacillus Rhamnosus* (Culturelle*) 1 Each Cap.sprink, 1 CAP PO BID for 5 Days, CAP Prov:GIACOMO STEWARTRaphael Carrizales 02/07/17 Albuterol/Ipratropium* (Combivent Respimat*) 20-100 Mcg/Inh - 4 Gm Aer.w.adap, 1 PUFF INHALATION QID, #1 INHALER use every 4 hours for 2 days then as needed only Prov:REUBEN STEWARTNAVJOT Carrizales 02/07/17 Atenolol* (Atenolol*) 50 Mg Tablet, 100 MG PO DAILY for 30 Days, TAB 2 Refills Prov:GIACOMO STEWARTRaphael DaphneRhianna 02/07/17 Tramadol HCl (Tramadol HCl) 50 Mg Tablet, 50 MG PO Q4 Y for PAIN, #20 TAB Prov:VEGA RUIZ 03/19/16 Reported Medications Gabapentin* (Gabapentin*) 100 Mg Capsule, 100 MG PO QHS, #90 CAP 02/05/17 Docusate Sodium* (Doc-Q-Lace*) 100 Mg Capsule, 100 MG PO DAILY, CAP 03/19/16 Atorvastatin Calcium* (Atorvastatin Calcium*) 20 Mg Tablet, 20 MG PO QHS, #30 TAB 03/19/16 Apixaban* (Eliquis*) 2.5 Mg Tablet, 5 MG PO BID, TAB 11/16/15 Paroxetine Hcl* (Paroxetine*) 10 Mg Tablet, 10 MG PO DAILY, TAB 11/16/15 Allergies Allergies: Coded Allergies: Penicillins (Verified Allergy, Unknown, 03/14/17) PMhx/Soc History of Surgery: Yes (L KNEE REPLACEMENT '07, TONSILECTOMY, CATERACT) Anesthesia Reaction: Yes (HALLUCINATIONS) Hx Neurological Disorder: No Hx Respiratory Disorders: Yes (BRONCHITIS) Hx Cardiac Disorders: Yes (HTN, AFIB, 1st degree heart block) Hx Psychiatric Problems: Yes (ANXIETY) Hx Miscellaneous Medical Probl: Yes (cataracts, HTN, OA, anxiety, L knee replacement 07, hyperthyroid) Hx Alcohol Use: No Hx Substance Use: No Hx Tobacco Use: No Smoking Status: Never smoker Physical Exam Vitals Vital Signs Date Time Temp Pulse Resp B/P Pulse Ox O2 Delivery O2 Flow Rate FiO2 07/08/17 02:37 72 21 108/76 100 BIPAP 07/08/17 00:37 85 22 123/85 99 BIPAP 07/07/17 23:23 98.2 84 22 153/94 100 BIPAP 07/07/17 22:10 83 100 35 07/07/17 21:53 98.2 85 22 145/82 99 Nasal Cannula 2.0 07/07/17 20:51 98.2 88 22 140/78 96 07/07/17 20:50 75 12 100 Nasal Cannula 2.0 07/07/17 20:50 Nasal Cannula 2.0 07/07/17 20:50 Nasal Cannula 2 Physical Exam Const: [] No distress, working very hard to breathe Head: Atraumatic Eyes: Normal Conjunctiva ENT: Normal External Ears, Nose and Mouth. Neck: Full range of motion..~ No meningismus. Resp: Bibasilar breath sounds with tachypnea and labored breathing Cardio: Regular rate and rhythm, no murmurs Abd: Soft, non tender, non distended. Normal bowel sounds Skin: No petechiae or rashes Back: No midline or flank tenderness Ext: No cyanosis, or edema Neur: Awake and alert 3, no focal deficits Psych: Anxious Result Diagram: 07/07/17 2100 07/07/17 2100 Results 24 hrs Laboratory Tests Test 07/07/17 21:00 White Blood Count 13.310^3/ul Red Blood Count 3.7610^6/ul Hemoglobin 10.7g/dl Hematocrit 35.0% Mean Corpuscular Volume 93.1fl Mean Corpuscular Hemoglobin 28.5pg Mean Corpuscular Hemoglobin Concent 30.6g/dl Red Cell Distribution Width 15.2% Platelet Count 29116^3/UL Mean Platelet Volume 10.5fl Neutrophils % 77.4% Lymphocytes % 14.2% Monocytes % 7.1% Eosinophils % 0.8% Basophils % 0.2% Nucleated Red Blood Cells % 0.0/100WBC Neutrophils # 10.310^3/ul Lymphocytes # 1.910^3/ul Monocytes # 1.010^3/ul Eosinophils # 0.110^3/ul Basophils # 0.010^3/ul Nucleated Red Blood Cells # 0.010^3/ul Sodium Level 139mmol/L Potassium Level 4.2mmol/L Chloride Level 100mmol/L Carbon Dioxide Level 31mmol/L Anion Gap 12 Blood Urea Nitrogen 23mg/dl Creatinine 0.65mg/dl Glucose Level 124mg/dl Calcium Level 8.7mg/dl Troponin I < 0.012ng/ml B-Type Natriuretic Peptide 2540PG/ML Current Medications Medications (Trade) Dose Ordered Sig/Laz Route PRN Reason Start Time Stop Time Status Last Admin Dose Admin Aspirin (Aspirin) 325 mg ONCE STAT PO 07/07/17 20:49 07/07/17 20:50 DC Morphine Sulfate (morphine) 2 mg ONCE STAT IV 07/07/17 20:49 07/07/17 20:50 DC 07/07/17 21:00 Ondansetron HCl (Zofran Inj) 4 mg ONCE ONCE IV 07/07/17 21:42 07/07/17 21:43 DC 07/07/17 21:50 Ondansetron HCl (Zofran Inj) 4 mg ER BRIDGE PRN IV NAUSEA AND/OR VOMITING 07/08/17 02:00 07/09/17 01:59 Acetaminophen (Tylenol Tab) 650 mg ER BRIDGE PRN PO MILD PAIN/FEVER 07/08/17 02:00 07/09/17 01:59 Procedures/MDM Acute decompensated congestive heart failure with chest pain with severe respiratory distress. Patient was put on a BiPAP which improved her breathing status. She did not want to take the BiPAP off on the emergency room and it was helping her breathe so much better. She was given aspirin for the chest pain. No signs of acute cardiac ischemia. Patient does have a history of A. fib and is on Eliquis. She was given 325 mg aspirin. Given Lasix 40 mg IV. EKG interpretation: Atrial fibrillation rate of 93, normal axis, no prolonged QT , no ST elevations or depressions concerning for acute ischemia. property assessment monitor interpretation: Atrial fibrillation with occasional rates above 100 but usually below 100. No other arrhythmia Chest x-ray interpretation: Her inspiration, apparent engorgement of pulmonary vasculature consistent with CHF, see no obvious infiltrate other than may be atelectasis at the lung bases, no pneumothorax, no fractures Care time greater than 35 minutes: This includes treatment of severe respiratory distress congestive heart failure, use of noninvasive positive pressure ventilation, ventilator management, review of chart, multiple visits patient's bedside to reassess cardiopulmonary status, discussion with patient and admitting doctor. This does not include any billable procedures. Departure Diagnosis: Primary Impression: Acute CHF Additional Impressions: Chest pain Respiratory distress Leukocytosis Normocytic anemia FOREST LINDSAY DO Jul 07, 2017 21:45
[2017-07-07 21:48] LABS: B-TYPE NATRIURETIC PEPTIDE 2540 PG/ML (0-450); TROPONIN-I < 0.012 ng/ml (0.00-0.12)
--- NOTE | 2017-07-07 22:33 | RADRPT ---
PROCEDURE: XR Chest. CLINICAL INDICATION: Chest Pain. TECHNIQUE: Single frontal view of the chest. COMPARISON: 02/05/2017. FINDINGS: Cardiomegaly with atherosclerotic calcifications in the thoracic aorta. Decreased lung inflation ove r interval with increased pulmonary vascular markings and new mild bibasilar atelectasis. The lungs are otherwise clear. No signs of pleural fluid or pneumothorax are seen. The osseous structures and soft tissues are unremarkable. IMPRESSION: Decreased lung inflation with new mild bibasilar atelectasis. RPTAT: [facility] Physician Ayla Date Time Electronically viewed and signed by Physician Ayla on 07/07/2017 22:32 RS/
[2017-07-08] VITALS (26 sets, daily range): BP systolic 112–158; BP diastolic 53–100; PULSE 68–93; RESP 12–26; TEMP 98.3; Ht 154.9 cm; Wt 75.4 kg
[2017-07-08] MEDS ORDERED: ACETAMINOPHEN 325 MG TAB PO PRN (02:00)
[2017-07-08] MEDS ORDERED: ONDANSETRON 4 MG INJ IV PRN ×2 (02:00→05:30)
[2017-07-08 03:30] LABS: CREATINE KINASE 28 IU/L (23-200)
[2017-07-08] MEDS ORDERED: FUROSEMIDE 40 MG INJ IV ONE (03:30)
[2017-07-08 03:42] LABS: CK-MB 0.43 ng/ml (0.0-2.4)
[2017-07-08 03:59] LABS: TROPONIN-I < 0.012 ng/ml (0.00-0.12)
[2017-07-08 04:18] LABS: ADD UMIC YES; UR ASCORBIC ACID NEGATIVE (NEGATIVE); UR BACTERIA FEW /HPF (NONE SEEN); UR BILIRUBIN (Dip) NEGATIVE (NEGATIVE); UR BLOOD (Dip) 2+ mg/dL (NEGATIVE); UR CLARITY CLEAR (CLEAR); UR COLOR YELLOW (YELLOW); UR GLUCOSE (Dip) NEGATIVE (NEGATIVE); UR KETONES (Dip) NEGATIVE (NEGATIVE); UR LEUKOCYTE ESTERASE (Dip) NEGATIVE Leu/ul (NEGATIVE); UR NITRITE (Dip) NEGATIVE (NEGATIVE); UR RBC 8 /HPF (0-5); UR SPECIFIC GRAVITY (Dip) 1.021 (1.003-1.030); UR SQUAMOUS EPITHELIAL CELL FEW /HPF (FEW); UR TOTAL PROTEIN (Dip) NEGATIVE (NEGATIVE); UR UROBILINOGEN (Dip) NEGATIVE (NEGATIVE)
[2017-07-08] MEDS ORDERED: morphine 4 MG/ML VIAL IV STA (04:26)
[2017-07-08] MEDS ORDERED: NITROGLYCERIN (SL) 0.4 MG TAB SL PRN (05:30)
[2017-07-08] MEDS ORDERED: morphine 2 MG INJ IV PRN (05:30)
[2017-07-08] MEDS ORDERED: ALBUTEROL/IPRATROPIUM (NEB) 3 ML AMP HHN PRN (05:30)
[2017-07-08] MEDS ORDERED: NACL 0.9% 3 ML SYG IV SCH (05:30)
[2017-07-08] MEDS ORDERED: traMADol 50 MG TAB PO PRN (05:30)
--- NOTE | 2017-07-08 07:27 | HP ---
Date/Time of Note Date/Time of Note DATE: 07/08/17 TIME: 07:17 Assessment/Plan VTE Prophylaxis VTE Prophylaxis Intervention: SCD's Lines/Catheters IV [facility]from [facility] Saline Lock Urinary Cath still in place: Yes Reason Cath still needed: other (indicate) Assessment/Plan Assessment/Plan 1. Shortness of breath, likely secondary to diastolic CHF -On physical examination, I did not appreciate much of lower extremity pitting edema, but according to mother legs were swollen yesterday and seems to have been relieved with Lasix given in the ER. -Recent 2D echo from 3 months ago showed preserved EF of 60%, but with a diastolic dysfunction -She will be placed on Lasix -Continue present treatments -Positive pressure ventilation as needed 2. A-fib, rate controlled -Continue Eliquis and atenolol 3. History of hyperthyroidism -Continue Tapazole -Check TSH in a.m. 4. Hypertension: Blood pressure within goal -Continue antihypertensives adjustment as needed 5. Leukocytosis: Likely reactive -Chest x-ray with mild bibasilar atelectasis and a urinalysis is negative for UTI -Check a.m. lab HPI/ROS Admit Date/Time Admit Date/Time Jul 08, 2017 at 01:32 Hx of Present Illness This is an 86-year-old female with a history of atrial fibrillation, hypothyroidism, chronic bronchitis, hypertension, diastolic dysfunction with preserved EF. Patient was brought to the ER for chest pain and shortness of breath. Patient is currently on BiPAP and as such information is mainly obtained from her daughter who was at the bedside. Patient started complaining of chest pain, shortness of breath and bilateral lower extremity swelling starting yesterday. According to her daughter prior to yesterday, she was in her usual state of health and was feeling well. She was admitted here 3 months ago for shortness of breath. At that time she was ruled out for ACS and a 2D echo showed abnormal diastolic dysfunction with preserved EF of 60%. Home medication does not include Lasix. When she presented to the ER today, vitals were stable. Her first troponin is negative. BNP 2500. WBC 13.3. Chest x-ray shows new mild bibasilar atelectasis. EKG was no ST elevation or depression. . PMH/Family/Social Past Surgical History Past Surgical Hx: other Social History Smoking Status: Never smoker Exam/Review of Systems Vital Signs Vitals Vital Signs Date Time Temp Pulse Resp B/P Pulse Ox O2 Delivery O2 Flow Rate FiO2 07/08/17 05:30 99.0 93 19 158/87 99 BIPAP 07/08/17 05:21 35 07/07/17 21:53 2.0 Intake and Output 07/07/17 07/07/17 07/08/17 15:00 23:00 07:00 Output Total 200 ml Balance -200 ml Exam Constitutional: other (On BiPAP. Seems to be tolerating it and not in any acute distress) Psych: no complaints Head: atraumatic, normocephalic Cardiovascular: irregular rhythm Gastrointestinal: soft Extremities: other (No pitting edema) Labs Result Diagram: 07/07/17 2100 07/07/17 2100 Medications Medications Current Medications Ondansetron HCl (Zofran Inj) 4 mg Q6H PRN IV NAUSEA AND/OR VOMITING; Start 08/12 at 05:30 Nitroglycerin (Nitroglycerin (Sl Tab) 0.4 Mg) 1 tab Q5M PRN SL CHEST PAIN; Start 07/08/17 at 05:30 Acetaminophen (Tylenol Tab) 650 mg Q6H PRN PO PAIN LEVEL 1-3 OR FEVER; Start 07/08/17 at 05:30 Morphine Sulfate (morphine) 2 mg Q4H PRN IV PAIN LEVEL 7-10; Start 07/08/17 at 05:30 Apixaban (Eliquis) 5 mg BID PO ; Start 07/08/17 at 09:00 Atenolol (Tenormin) 100 mg DAILY PO ; Start 07/08/17 at 09:00 Atorvastatin Calcium (Lipitor) 20 mg QHS PO ; Start 07/08/17 at 21:00 Docusate Sodium (Colace) 100 mg DAILY PO ; Start 07/08/17 at 09:00 Gabapentin (Neurontin) 100 mg QHS PO ; Start 07/08/17 at 21:00 Lactobacillus Acidophilus/ Rhamnosus (Culturelle) 1 cap BID PO ; Start at 09:00 Paroxetine HCl (Paxil) 10 mg DAILY PO ; Start 07/08/17 at 09:00 Tramadol HCl (Ultram) 50 mg Q4 PRN PO PAIN; Start 07/08/17 at 05:30 Furosemide (Lasix) 20 mg DAILY IV ; Start 07/08/17 at 09:00 VEGA SAINI MD Jul 08, 2017 07:27
[2017-07-08 07:32] LABS: BASOPHILS % 0.2 % (0.0-2.0); HEMATOCRIT 32.4 % (37.0-47.0); HEMOGLOBIN 10.2 g/dl (12.0-16.0); LYMPHOCYTES # 1.6 10^3/ul (0.8-2.9); MEAN CORPUSCULAR HEMOGLOBIN 29.1 pg (29.0-33.0); MEAN CORPUSCULAR HGB CONC 31.5 g/dl (32.0-37.0); MEAN CORPUSCULAR VOLUME 92.3 fl (82.0-101.0); MEAN PLATELET VOLUME 10.2 fl (7.4-10.4); MONOCYTES % 7.6 % (0.0-11.0); NEUTROPHIL # 9.8 10^3/ul (1.6-7.5); NEUTROPHILS % 78.7 % (39.0-77.0); PLATELET COUNT 259 10^3/UL (140-415); RED BLOOD COUNT 3.51 10^6/ul (4.20-5.40); RED CELL DISTRIBUTION WIDTH 14.9 % (11.5-14.5); WHITE BLOOD COUNT 12.5 10^3/ul (4.8-10.8)
[2017-07-08 08:06] LABS: ALBUMIN 3.6 g/dl (3.3-4.9); BILIRUBIN,INDIRECT 0.2 mg/dl (0-1.1); BILIRUBIN,TOTAL 0.2 mg/dl (0.2-1.3); CALCIUM 8.7 mg/dl (8.4-10.2); CREATININE 0.67 mg/dl (0.44-1.00); MAGNESIUM 1.4 mg/dl (1.7-2.5); POTASSIUM 4.2 mmol/L (3.5-5.1); TOTAL PROTEIN 7.2 g/dl (6.1-8.1)
[2017-07-08 08:37] LABS: THYROID STIMULATING HORMONE 1.58 MIU/L (0.465-4.680)
[2017-07-08] MEDS ORDERED: FUROSEMIDE 20 MG INJ IV SCH (09:00)
[2017-07-08] MEDS ORDERED: MAGNESIUM SULFATE 4 GM/100 ML 100 ML IVPB ONE (09:00)
[2017-07-08] MEDS: PAROXETINE 10 MG TAB PO SCH (09:44)
[2017-07-08] MEDS: FUROSEMIDE 40 MG INJ IV SCH (09:44)
[2017-07-08] MEDS: DOCUSATE SODIUM 100 MG CAP PO SCH (09:45)
[2017-07-08] MEDS: APIXABAN 5 MG TABLET PO SCH ×2 (09:45→21:49)
[2017-07-08] MEDS: LACTOBACILLUS RHAMNOSUS CAP PO SCH ×2 (09:45→21:56)
[2017-07-08] MEDS: ATENOLOL 50 MG TAB PO SCH (09:46)
[2017-07-08 10:04] LABS: CK-MB 0.48 ng/ml (0.0-2.4); TROPONIN-I 0.015 ng/ml (0.00-0.12)
[2017-07-08] MEDS: LEVOFLOXACIN 500MG/D5W (PMX) 100 ML IVPB SCH (10:43)
--- NOTE | 2017-07-08 11:39 | CONS ---
DATE OF ADMISSION: 07/08/2017 DATE OF CONSULTATION: 07/08/2017 PULMONARY CONSULTATION REASON FOR CONSULTATION: Shortness of breath. Thank you, Dr. Tenorio, for this consultation. HISTORY OF PRESENT ILLNESS: This is an 86-year-old lady with a history of atrial fibrillation, hype rtension, hyperlipidemia, hypothyroidism, diastolic dysfunction, who came into the emergency room wi th several-day history of increasing shortness of breath, orthopnea, PND. No fever, no chills, no c hest pain or palpitations. She was found to have elevated white cell count and BNP. Chest x-ray de monstrated bibasilar atelectasis. There were no acute EKG changes. PAST MEDICAL HISTORY: As above. MEDICATIONS: Per chart. ALLERGIES: PENICILLIN. SOCIAL HISTORY: Nonsmoker, no alcohol, no history of drug use. FAMILY HISTORY: Noncontributory. SYSTEMS REVIEW: A 12-point review of systems was negative other than that mentioned above. PHYSICAL EXAMINATION: GENERAL: Moderately obese lady, awake, alert, comfortable on BiPAP. VITAL SIGNS: Currently afebrile, pulse is 81, blood pressure 123/74, O2 saturation 96% on current B iPAP settings. NECK: Supple. JVD is mildly elevated. CARDIAC EXAM: S1, S2. A II/ systolic ejection murmur. CHEST: Diminished air entry bilaterally with rhonchi. ABDOMEN: Soft, nontender. No guarding or rebound. Obese. EXTREMITIES: No cyanosis, clubbing. 1+ edema. NEUROLOGIC: Generalized weakness. LABORATORY DATA: BUN 21, creatinine 0.67. Hemoglobin 10.2, white count 12.5. Urinalysis was unrem arkable. Chest x-ray showed bibasilar atelectasis. IMPRESSION AND PLAN: 1. Hypoxemic respiratory failure. 2. Congestive heart failure. 3. Probable underlying obstructive sleep apnea. The patient will require: 1. Diuresis. 2. Bronchodilators. 3. Probable antibiotics for community-acquired pneumonia. 4. Echocardiogram if not recently performed. 5. Outpatient sleep study and pulmonary function testing. Dictated By: JOSY RAMOS MD SV/NTS Conf#: [id number] DID#: [id number] CC: VEGA SAINI MD;*EndCC*
[2017-07-08 12:37] LABS: AADO2 Arterial 44.7 mmHg (7.0-24.0); Allen Test ACCEPTAB; Arterial Base Excess 8.3 mmol/L (-3.0-3); Arterial COHb 0.3 % (0.0-3.0); Arterial HCO3 34.2 mmol/L (22.0-26.0); Arterial MetHb 0.1 % (0.0-1.5); Arterial Total Hemglobin 11.5 g/dl (12.0-18.0); MODE NASAL CANNULA
--- NOTE | 2017-07-08 13:04 | PN ---
Date/Time of Note Date/Time of Note DATE: 07/08/17 TIME: 12:57 Assessment/Plan VTE Prophylaxis VTE Prophylaxis Intervention: other Lines/Catheters IV Catheter Type (from Nrsg): Peripheral IV Urinary Cath still in place: Yes Reason Cath still needed: other (indicate) (desaturation with movement. on lasix) Assessment/Plan Assessment/Plan 1. Acute on chronic diastolic heart failure - Patient has pitting edema LE b/l and BNP 2500s - on IV Lasix and has good output - Continue monitoring I/O and daily weights - Follows with Dr. Hewitt as outpatient and will hold off on Cardiology consult at this time - Recent ECHO performed 3 months ago shows EF 60% - Doing well off BIPAP and tolerating NC well 2. A-fib, rate controlled -Continue Eliquis and atenolol 3. History of hyperthyroidism -Continue Tapazole -Check TSH in a.m. 4. Hypertension: Blood pressure within goal -Continue antihypertensives adjustment as needed 5. Acute hypercapnic respiratory failure - Pulmonology on board and appreciate consultation - Will need outpatient PFT and Sleep Study - started on antibiotics for ?CAP 6. Disposition - Can transfer to telemetry when bed available >30 minutes of critical care time spent with patient and family at bedside Subjective 24 Hr Interval Summary Free Text/Dictation Patient states shes feeling better since yesterday. Experiencing epigastric discomfort with deep breaths which travels up esophagus. Exam/Review of Systems Vital Signs Vitals Vital Signs Date Time Temp Pulse Resp B/P Pulse Ox O2 Delivery O2 Flow Rate FiO2 07/08/17 12:00 Nasal Cannula 3.0 07/08/17 12:00 97.7 89 19 125/76 98 07/08/17 09:40 35 Intake and Output 07/07/17 07/07/17 07/08/17 15:00 23:00 07:00 Output Total 500 ml Balance -500 ml Exam Constitutional: alert, oriented, well developed, No frail Psych: nl mood/affect Head: atraumatic, normocephalic Eyes: EOMI, PERRL ENMT: mucosa pink and moist Neck: non-tender, supple Respiratory: clear to auscultation, No crackles/rales, No diminished breath sounds, No wheezing Cardiovascular: edema, irregular rhythm, nl pulses Gastrointestinal: non-tender, soft, No distended, No rebound or guarding Musculoskeletal: nl extremities to inspection Extremities: edema, pitting pedal edema, No calf tenderness Neurological: MANAGER OF DISASTER RECOVERY II-XII intact, nl mental status, nl speech Skin: nl turgor Lymph: nl lymph nodes Results Result Diagram: 07/08/17 0711 07/08/17 0711 Results 24 hrs Laboratory Tests Test 07/07/17 21:00 07/08/17 02:55 07/08/17 03:50 07/08/17 07:11 White Blood Count 13.3 #H 12.5 H Red Blood Count 3.76 L 3.51 L Hemoglobin 10.7 L 10.2 L Hematocrit 35.0 L 32.4 L Mean Corpuscular Volume 93.1 92.3 Mean Corpuscular Hemoglobin 28.5 L 29.1 Mean Corpuscular Hemoglobin Concent 30.6 L 31.5 L Red Cell Distribution Width 15.2 H 14.9 H Platelet Count 280 # 259 Mean Platelet Volume 10.5 H 10.2 Neutrophils % 77.4 H 78.7 H Lymphocytes % 14.2 L 13.0 L Monocytes % 7.1 7.6 Eosinophils % 0.8 0.0 Basophils % 0.2 0.2 Nucleated Red Blood Cells % 0.0 0.0 Neutrophils # 10.3 H 9.8 H Lymphocytes # 1.9 1.6 Monocytes # 1.0 H 1.0 H Eosinophils # 0.1 0.0 Basophils # 0.0 0.0 Nucleated Red Blood Cells # 0.0 0.0 Sodium Level 139 137 Potassium Level 4.2 4.2 Chloride Level 100 98 Carbon Dioxide Level 31 32 H Anion Gap 12 11 Blood Urea Nitrogen 23 H 21 H Creatinine 0.65 0.67 Glucose Level 124 110 Calcium Level 8.7 8.7 Troponin I < 0.012 < 0.012 B-Type Natriuretic Peptide 2540 H Creatine Kinase 28 Creatine Kinase Index 1.5 Creatinine Kinase MB (Mass) 0.43 Urine Color YELLOW Urine Clarity CLEAR Urine pH 5.0 Urine Specific Printer 1.021 Urine Ketones NEGATIVE Urine Nitrite NEGATIVE Urine Bilirubin NEGATIVE Urine Urobilinogen NEGATIVE Urine Leukocyte Esterase NEGATIVE Urine Microscopic RBC 8 H Urine Microscopic WBC 1 Urine Squamous Epithelial Cells FEW Urine Bacteria FEW A Urine Hemoglobin 2+ H Urine Glucose NEGATIVE Urine Total Protein NEGATIVE Magnesium Level 1.4 L Total Bilirubin 0.2 Direct Bilirubin 0.00 Indirect Bilirubin 0.2 Aspartate Amino Transf (AST/SGOT) 26 Alanine Aminotransferase (ALT/SGPT) 38 Alkaline Phosphatase 79 Total Protein 7.2 Albumin 3.6 Globulin 3.60 H Albumin/Globulin Ratio 1.00 Thyroid Stimulating Hormone (TSH) 1.580 Free Thyroxine 0.83 L Test 07/08/17 09:26 07/08/17 12:00 Creatine Kinase 26 Creatine Kinase Index 1.8 Creatinine Kinase MB (Mass) 0.48 Troponin I 0.015 Blood Gas Specimen Source Blood arterial Arterial Blood Date Drawn 07/08/2017 12:28:12 PM Arterial Blood pH (Temp corrected) 7.424 Arterial Blood pCO2 (Temp correct) 53.4 H Arterial Blood pO2 (Temp corrected) 84.7 Arterial Blood HCO3 34.2 H Arterial Blood Base Excess 8.3 H Arterial Blood Oxygen Saturation 96.4 Nimesh Test ACCEPTAB Arterial Blood Gas Puncture Site Left Radial Arterial Blood Carboxyhemoglobin 0.3 Arterial Blood Methemoglobin 0.1 Blood Gas A-a O2 Differential 44.7 H Oxyhemoglobin Percent 96.0 Total Hemoglobin 11.5 L Blood Gas Temperature 37.0 Blood Gas Modality NASAL CANNULA FiO2 27.0 Blood Gas Notified Whom AT Blood Gas Notified Time 07/08/2017 12:36:56 PM Medications Medications Current Medications Ondansetron HCl (Zofran Inj) 4 mg Q6H PRN IV NAUSEA AND/OR VOMITING; Start 08/12 at 05:30 Nitroglycerin (Nitroglycerin (Sl Tab) 0.4 Mg) 1 tab Q5M PRN SL CHEST PAIN; Start 07/08/17 at 05:30 Acetaminophen (Tylenol Tab) 650 mg Q6H PRN PO PAIN LEVEL 1-3 OR FEVER; Start 07/08/17 at 05:30 Morphine Sulfate (morphine) 2 mg Q4H PRN IV PAIN LEVEL 7-10; Start 07/08/17 at 05:30 Apixaban (Eliquis) 5 mg BID PO Last administered on 07/08/17 09:45; Admin Dose 5 MG; Start 07/08/17 at 09:00 Atenolol (Tenormin) 100 mg DAILY PO Last administered on 07/08/17 09:46; Admin Dose 100 MG; Start 07/08/17 at 09:00 Atorvastatin Calcium (Lipitor) 20 mg QHS PO ; Start 07/08/17 at 21:00 Docusate Sodium (Colace) 100 mg DAILY PO Last administered on 07/08/17 09:45 ; Admin Dose 100 MG; Start 07/08/17 at 09:00 Gabapentin (Neurontin) 100 mg QHS PO ; Start 07/08/17 at 21:00 Lactobacillus Acidophilus/ Rhamnosus (Culturelle) 1 cap BID PO Last administered on 07/08/17 09:45; Admin Dose 1 CAP; Start 07/08/17 at 09:00 Paroxetine HCl (Paxil) 10 mg DAILY PO Last administered on 07/08/17 09:44; Admin Dose 10 MG; Start 07/08/17 at 09:00 Tramadol HCl (Ultram) 50 mg Q4 PRN PO PAIN; Start 07/08/17 at 05:30 Influenza Virus Vaccine 0.5 ml 0.5 ml ONCE ONCE IM* ; Start 07/11/17 at 09:00; Stop 07/11/17 at 09:01 Magnesium Sulfate (Magnesium Sulfate 4 Gm/100 ml) 100 ml @ 25 mls/hr ONCE ONCE IVPB Last administered on 07/08/17 10:53; Admin Dose 25 MLS/HR; Start 07/08/17 at 09:00; Stop 07/08/17 at 12:59 Furosemide 40 mg 40 mg DAILY IV Last administered on 07/08/17 09:44; Admin Dose 40 MG; Start 07/08/17 at 09:00 Levofloxacin/ Dextrose (Levaquin 500mg/ D5W 100 ml (Pmx)) 100 ml @ 100 mls/hr Q24H IVPB Last administered on 07/08/17 10:43; Admin Dose 100 MLS/HR; Start 07/08/17 at 11:00 DEMAR LUNDBERG MD Jul 08, 2017 13:04
[2017-07-08] MEDS: ATORVASTATIN 20 MG TAB PO SCH (21:49)
[2017-07-08] MEDS: GABAPENTIN 100 MG CAP PO SCH (21:49)
[2017-07-09] VITALS (11 sets, daily range): BP systolic 98–150; BP diastolic 58–78; PULSE 72–95; RESP 16–18
[2017-07-09] MEDS: ACETAMINOPHEN 325 MG TAB PO PRN (07:27)
[2017-07-09] MEDS: APIXABAN 5 MG TABLET PO SCH ×2 (08:36→21:36)
[2017-07-09] MEDS: DOCUSATE SODIUM 100 MG CAP PO SCH (08:36)
[2017-07-09] MEDS: PAROXETINE 10 MG TAB PO SCH (08:37)
[2017-07-09] MEDS: LACTOBACILLUS RHAMNOSUS CAP PO SCH ×2 (08:37→21:37)
[2017-07-09] MEDS: ATENOLOL 50 MG TAB PO SCH (08:37)
[2017-07-09] MEDS: FAMOTIDINE 20 MG TAB PO SCH (08:38)
[2017-07-09] MEDS: FUROSEMIDE 40 MG INJ IV SCH (08:38)
[2017-07-09 08:43] LABS: Allen Test ACCEPTAB; Arterial Base Excess 8.7 mmol/L (-3.0-3); Arterial COHb 0.3 % (0.0-3.0); Arterial Fraction of Oxyhgb 97.7 % (93.0-99.0); Arterial HCO3 35.3 mmol/L (22.0-26.0); Arterial MetHb 0.1 % (0.0-1.5); Arterial Total Hemglobin 11.7 g/dl (12.0-18.0); MODE NASAL CANNULA
[2017-07-09 09:03] LABS: BASOPHILS % 0.3 % (0.0-2.0); EOSINOPHILS # 0.2 10^3/ul (0.0-0.5); EOSINOPHILS % 1.9 % (0.0-7.0); HEMATOCRIT 32.5 % (37.0-47.0); HEMOGLOBIN 10.1 g/dl (12.0-16.0); LYMPHOCYTES # 1.5 10^3/ul (0.8-2.9); LYMPHOCYTES % 16.5 % (15.0-51.0); MEAN CORPUSCULAR HEMOGLOBIN 28.5 pg (29.0-33.0); MEAN CORPUSCULAR HGB CONC 31.1 g/dl (32.0-37.0); MEAN CORPUSCULAR VOLUME 91.5 fl (82.0-101.0); MEAN PLATELET VOLUME 10.9 fl (7.4-10.4); MONOCYTE # 0.7 10^3/ul (0.3-0.9); MONOCYTES % 8.3 % (0.0-11.0); NEUTROPHIL # 6.5 10^3/ul (1.6-7.5); NEUTROPHILS % 72.7 % (39.0-77.0); PLATELET COUNT 263 10^3/UL (140-415); RED BLOOD COUNT 3.55 10^6/ul (4.20-5.40); RED CELL DISTRIBUTION WIDTH 14.6 % (11.5-14.5)
[2017-07-09 09:26] LABS: CALCIUM 8.5 mg/dl (8.4-10.2); CREATININE 0.72 mg/dl (0.44-1.00); PHOSPHORUS 4.6 mg/dl (2.5-4.9); POTASSIUM 4.2 mmol/L (3.5-5.1)
--- NOTE | 2017-07-09 09:27 | RADRPT ---
PROCEDURE: XR Chest. CLINICAL INDICATION: Pneumonia TECHNIQUE: A single AP view of the chest was obtained. COMPARISON: Chest x-ray dated 07/07/2017 FINDINGS: No focal airspace opacification, pleural effusion or pneumothorax is seen. The cardiomediastinal si lhouette is mildly enlarged. Calcifications are seen within the aortic arch. The osseous structures demonstrate senescent changes. IMPRESSION: 1. No radiographic evidence of acute cardiopulmonary disease. 2. Mild cardiomegaly and aortic atherosclerosis. RPTAT: HH .Amena Partida MD, MD Date Time Electronically viewed and signed by .Amena Partida MD, MD on 07/09/2017 09:27 .G/
[2017-07-09] MEDS: LEVOFLOXACIN 500MG/D5W (PMX) 100 ML IVPB SCH (11:13)
--- NOTE | 2017-07-09 11:22 | CONS ---
Date/Time of Note Date/Time of Note DATE: 07/09/17 TIME: 11:19 Assessment/Plan Assessment/Plan Additional Assessment/Plan Assessment and recommendations; 1. Patient admitted with shortness of breath due to some element of diastolic dysfunction with significant clinical and radiological improvement. 2. Mild hypercapnia clinically improved. 3. History of chronic atrial fibrillation. 4. History of hypertension, neuropathy, depression, hyper thyroidism. Continue current supportive care. Patient responding well to current treatment regimen. Consider discharge. Consultation Date/Type/Reason Admit Date/Time Jul 08, 2017 at 01:32 Initial Consult Date Type of Consultation: Pulmonary 24 HR Interval Summary Free Text/Dictation Patient's condition is markedly improved. She reports significant reduction in shortness of breath. Denies any chest pain, coughing, wheezing. General exam; elderly woman, awake alert, currently in no distress. Exam/Review of Systems Vital Signs Vitals Vital Signs Date Time Temp Pulse Resp B/P Pulse Ox O2 Delivery O2 Flow Rate FiO2 07/09/17 08:20 80 07/09/17 07:42 98.1 18 134/70 99 07/09/17 04:49 2.0 07/08/17 20:20 Nasal Cannula 07/08/17 09:40 35 Intake and Output 07/08/17 07/08/17 07/09/17 15:00 23:00 07:00 Intake Total 220 ml 100 ml 300 ml Output Total 1700 ml 200 ml 760 ml Balance -1480 ml -100 ml -460 ml Exam HEENT exam; supple neck, no JVD. No lymphadenopathy. Midline trachea. No thyromegaly. No neck masses. Patient has bilateral intraocular lens implants. Dentition is fair. Chest exam; clear to auscultation. S1-S2 audible, no murmurs. Irregular rhythm. Abdomen exam; soft, slightly protuberant. No organomegaly. Nontender. Bowel sounds audible. Extremity exam; no peripheral edema. Pulses 1+ bilaterally. BROOMCORN SORTER exam; no focal deficit. Results Result Diagram: 07/09/1724 07/09/1724 Results 24 hrs Laboratory Tests Test 07/08/17 12:00 07/09/17 07:00 07/09/17 07:24 Blood Gas Specimen Source Blood arterial Blood arterial Arterial Blood Date Drawn 07/08/2017 12:28:12 PM 07/09/2017 8:30:35 AM Arterial Blood pH (Temp corrected) 7.424 7.397 Arterial Blood pCO2 (Temp correct) 53.4 H 58.7 H Arterial Blood pO2 (Temp corrected) 84.7 114.1 H Arterial Blood HCO3 34.2 H 35.3 H Arterial Blood Base Excess 8.3 H 8.7 H Arterial Blood Oxygen Saturation 96.4 98.1 Nimesh Test ACCEPTAB ACCEPTAB Arterial Blood Gas Puncture Site Left Radial Left Radial Arterial Blood Carboxyhemoglobin 0.3 0.3 Arterial Blood Methemoglobin 0.1 0.1 Blood Gas A-a O2 Differential 44.7 H 9.0 Oxyhemoglobin Percent 96.0 97.7 Total Hemoglobin 11.5 L 11.7 L Blood Gas Temperature 37.0 37.0 Blood Gas Modality NASAL CANNULA NASAL CANNULA FiO2 27.0 27.0 Blood Gas Notified Whom AT [facility] Blood Gas Notified Time 07/08/2017 12:36:56 PM 07/09/2017 8:43:10 AM White Blood Count 9.0 # Red Blood Count 3.55 L Hemoglobin 10.1 L Hematocrit 32.5 L Mean Corpuscular Volume 91.5 Mean Corpuscular Hemoglobin 28.5 L Mean Corpuscular Hemoglobin Concent 31.1 L Red Cell Distribution Width 14.6 H Platelet Count 263 Mean Platelet Volume 10.9 H Neutrophils % 72.7 Lymphocytes % 16.5 Monocytes % 8.3 Eosinophils % 1.9 Basophils % 0.3 Nucleated Red Blood Cells % 0.0 Neutrophils # 6.5 Lymphocytes # 1.5 Monocytes # 0.7 Eosinophils # 0.2 Basophils # 0.0 Nucleated Red Blood Cells # 0.0 Sodium Level 136 Potassium Level 4.2 Chloride Level 94 L Carbon Dioxide Level 34 H Anion Gap 12 Blood Urea Nitrogen 18 Creatinine 0.72 Glucose Level 83 Calcium Level 8.5 Phosphorus Level 4.6 Magnesium Level 2.0 Medications Medications Current Medications Ondansetron HCl (Zofran Inj) 4 mg Q6H PRN IV NAUSEA AND/OR VOMITING; Start 08/12 at 05:30 Nitroglycerin (Nitroglycerin (Sl Tab) 0.4 Mg) 1 tab Q5M PRN SL CHEST PAIN; Start 07/08/17 at 05:30 Acetaminophen (Tylenol Tab) 650 mg Q6H PRN PO PAIN LEVEL 1-3 OR FEVER Last administered on 07/09/17 07:27; Admin Dose 650 MG; Start 07/08/17 at 05:30 Morphine Sulfate (morphine) 2 mg Q4H PRN IV PAIN LEVEL 7-10; Start 07/08/17 at 05:30 Apixaban (Eliquis) 5 mg BID PO Last administered on 07/09/17 08:36; Admin Dose 5 MG; Start 07/08/17 at 09:00 Atenolol (Tenormin) 100 mg DAILY PO Last administered on 07/09/17 08:37; Admin Dose 100 MG; Start 07/08/17 at 09:00 Atorvastatin Calcium (Lipitor) 20 mg QHS PO Last administered on 07/08/17 21: 49; Admin Dose 20 MG; Start 07/08/17 at 21:00 Docusate Sodium (Colace) 100 mg DAILY PO Last administered on 07/09/17 08:36 ; Admin Dose 100 MG; Start 07/08/17 at 09:00 Gabapentin (Neurontin) 100 mg QHS PO Last administered on 07/08/17 21:49; Admin Dose 100 MG; Start 07/08/17 at 21:00 Lactobacillus Acidophilus/ Rhamnosus (Culturelle) 1 cap BID PO Last administered on 07/09/17 08:37; Admin Dose 1 CAP; Start 07/08/17 at 09:00 Paroxetine HCl (Paxil) 10 mg DAILY PO Last administered on 07/09/17 08:37; Admin Dose 10 MG; Start 07/08/17 at 09:00 Tramadol HCl (Ultram) 50 mg Q4 PRN PO PAIN; Start 07/08/17 at 05:30 Influenza Virus Vaccine (Fluzone) 0.5 ml ONCE ONCE IM* ; Start 07/11/17 at 09: 00; Stop 07/11/17 at 09:01 Furosemide 40 mg 40 mg DAILY IV Last administered on 07/09/17 08:38; Admin Dose 40 MG; Start 07/08/17 at 09:00 Levofloxacin/ Dextrose (Levaquin 500mg/ D5W 100 ml (Pmx)) 100 ml @ 100 mls/hr Q24H IVPB Last administered on 07/09/17 11:13; Admin Dose 100 MLS/HR; Start 07/08/17 at 11:00 Famotidine (Pepcid) 20 mg DAILY PO Last administered on 07/09/17t 08:38; Admin Dose 20 MG; Start 07/09/17 at 09:00 EFREM LANGLEY Jul 09, 2017 11:22
--- NOTE | 2017-07-09 14:52 | PN ---
Date/Time of Note Date/Time of Note DATE: 07/09/17 TIME: 14:42 Assessment/Plan VTE Prophylaxis VTE Prophylaxis Intervention: SCD's Lines/Catheters IV Catheter Type (from Nrs): Saline Lock Urinary Cath still in place: No Assessment/Plan Assessment/Plan 1. Acute on chronic diastolic heart failure- improving - Patient diuresing well and lower extremity edema improved significantly. No longer experiencing shortness of breath or requiring PRN BIPAP - on IV Lasix and has good output. Will change to PO tomorrow - Continue monitoring I/O and daily weights. D/C prince - Follows with Dr. Hewitt as outpatient and will hold off on Cardiology consult at this time - Recent ECHO performed 3 months ago shows EF 60% - Doing well off BIPAP and tolerating NC well. Will wean off O2 to maintain saturations >90% 2. A-fib, rate controlled -Continue Eliquis and atenolol 3. History of hyperthyroidism -Continue Tapazole -Check TSH in a.m. 4. Hypertension: Blood pressure within goal -Continue antihypertensives adjustment as needed 5. Acute hypercapnic respiratory failure - Pulmonology on board and appreciate consultation - Will need outpatient PFT and Sleep Study - started on antibiotics for CAP. Will change to PO Levaquin 6. Disposition - Continue monitoring in Telemetry and taper off O2. If remains stable, will d/ c in am Subjective 24 Hr Interval Summary Free Text/Dictation Patient states shes feeling better and denies any worsening respiratory symptoms. No acute overnight events. Diuresing well. Exam/Review of Systems Vital Signs Vitals Vital Signs Date Time Temp Pulse Resp B/P Pulse Ox O2 Delivery O2 Flow Rate FiO2 07/09/17 12:21 95 07/09/17 11:37 98.2 17 118/58 97 07/09/17 04:49 2.0 07/08/17 20:20 Nasal Cannula 07/08/17 09:40 35 Intake and Output 07/08/17 07/08/17 07/09/17 15:00 23:00 07:00 Intake Total 220 ml 100 ml 300 ml Output Total 1700 ml 200 ml 760 ml Balance -1480 ml -100 ml -460 ml Exam Constitutional: alert, oriented, well developed, no acute distress Eyes: EOMI, PERRL ENMT: mucosa pink and moist Neck: non-tender, supple Respiratory: clear to auscultation, No crackles/rales, No diminished breath sounds, No wheezing Cardiovascular: regular rate, irregular rhythm, nl pulses, no murmur Gastrointestinal: non-tender, soft, No distended, No rebound or guarding Musculoskeletal: nl extremities to inspection Extremities: trace lower extremity No calf tenderness Neurological: OTOLARYNGOLOGY SURGEON II-XII intact, nl mental status, nl speech Results Result Diagram: 07/09/17 0724 07/09/17 0724 Results 24 hrs Laboratory Tests Test 07/09/17 07:00 07/09/17 07:24 Blood Gas Specimen Source Blood arterial Arterial Blood Date Drawn 07/09/2017 8:30:35 AM Arterial Blood pH (Temp corrected) 7.397 Arterial Blood pCO2 (Temp correct) 58.7 H Arterial Blood pO2 (Temp corrected) 114.1 H Arterial Blood HCO3 35.3 H Arterial Blood Base Excess 8.7 H Arterial Blood Oxygen Saturation 98.1 Nimesh Test ACCEPTAB Arterial Blood Gas Puncture Site Left Radial Arterial Blood Carboxyhemoglobin 0.3 Arterial Blood Methemoglobin 0.1 Blood Gas A-a O2 Differential 9.0 Oxyhemoglobin Percent 97.7 Total Hemoglobin 11.7 L Blood Gas Temperature 37.0 Blood Gas Modality NASAL CANNULA FiO2 27.0 Blood Gas Notified Whom JLD Blood Gas Notified Time 07/09/2017 8:43:10 AM White Blood Count 9.0 # Red Blood Count 3.55 L Hemoglobin 10.1 L Hematocrit 32.5 L Mean Corpuscular Volume 91.5 Mean Corpuscular Hemoglobin 28.5 L Mean Corpuscular Hemoglobin Concent 31.1 L Red Cell Distribution Width 14.6 H Platelet Count 263 Mean Platelet Volume 10.9 H Neutrophils % 72.7 Lymphocytes % 16.5 Monocytes % 8.3 Eosinophils % 1.9 Basophils % 0.3 Nucleated Red Blood Cells % 0.0 Neutrophils # 6.5 Lymphocytes # 1.5 Monocytes # 0.7 Eosinophils # 0.2 Basophils # 0.0 Nucleated Red Blood Cells # 0.0 Sodium Level 136 Potassium Level 4.2 Chloride Level 94 L Carbon Dioxide Level 34 H Anion Gap 12 Blood Urea Nitrogen 18 Creatinine 0.72 Glucose Level 83 Calcium Level 8.5 Phosphorus Level 4.6 Magnesium Level 2.0 Medications Medications Current Medications Ondansetron HCl (Zofran Inj) 4 mg Q6H PRN IV NAUSEA AND/OR VOMITING; Start 08/12 at 05:30 Nitroglycerin (Nitroglycerin (Sl Tab) 0.4 Mg) 1 tab Q5M PRN SL CHEST PAIN; Start 07/08/17 at 05:30 Acetaminophen (Tylenol Tab) 650 mg Q6H PRN PO PAIN LEVEL 1-3 OR FEVER Last administered on 07/09/17 07:27; Admin Dose 650 MG; Start 07/08/17 at 05:30 Morphine Sulfate (morphine) 2 mg Q4H PRN IV PAIN LEVEL 7-10; Start 07/08/17 at 05:30 Apixaban (Eliquis) 5 mg BID PO Last administered on 07/09/17 08:36; Admin Dose 5 MG; Start 07/08/17 at 09:00 Atenolol (Tenormin) 100 mg DAILY PO Last administered on 07/09/17 08:37; Admin Dose 100 MG; Start 07/08/17 at 09:00 Atorvastatin Calcium (Lipitor) 20 mg QHS PO Last administered on 07/08/17 21: 49; Admin Dose 20 MG; Start 07/08/17 at 21:00 Docusate Sodium (Colace) 100 mg DAILY PO Last administered on 07/09/17 08:36 ; Admin Dose 100 MG; Start 07/08/17 at 09:00 Gabapentin (Neurontin) 100 mg QHS PO Last administered on 07/08/17 21:49; Admin Dose 100 MG; Start 07/08/17 at 21:00 Lactobacillus Acidophilus/ Rhamnosus (Culturelle) 1 cap BID PO Last administered on 07/09/17 08:37; Admin Dose 1 CAP; Start 07/08/17 at 09:00 Paroxetine HCl (Paxil) 10 mg DAILY PO Last administered on 07/09/17 08:37; Admin Dose 10 MG; Start 07/08/17 at 09:00 Tramadol HCl (Ultram) 50 mg Q4 PRN PO PAIN; Start 07/08/17 at 05:30 Influenza Virus Vaccine (Fluzone) 0.5 ml ONCE ONCE IM* ; Start 07/11/17 at 09: 00; Stop 07/11/17 at 09:01 Famotidine (Pepcid) 20 mg DAILY PO Last administered on 07/09/17 08:38; Admin Dose 20 MG; Start 07/09/17 at 09:00 Levofloxacin (Levaquin) 500 mg DAILY@06 PO ; Start 07/10/17 at 06:00; Stop at 23:00 Furosemide (Lasix) 20 mg DAILY PO ; Start 07/10/17 at 09:00 Levofloxacin (Levaquin) 250 mg DAILY@06 PO ; Start 07/11/17 at 06:00 DEMAR LUNDBERG MD Jul 09, 2017 14:52
[2017-07-09] MEDS: GABAPENTIN 100 MG CAP PO SCH (21:37)
[2017-07-09] MEDS: ATORVASTATIN 20 MG TAB PO SCH (21:37)
[2017-07-09] MEDS: MUPIROCIN 2% 22 GM OINT TOP SCH (21:37)
[2017-07-10] VITALS (9 sets, daily range): BP systolic 113–184; BP diastolic 59–97; PULSE 70–79; RESP 17–18
[2017-07-10] MEDS ORDERED: LEVOFLOXACIN 500 MG TAB PO SCH (06:00)
[2017-07-10] MEDS: ACETAMINOPHEN 325 MG TAB PO PRN (06:31)
[2017-07-10] MEDS ORDERED: FUROSEMIDE 20 MG TAB PO SCH (09:00)
[2017-07-10] MEDS: DOCUSATE SODIUM 100 MG CAP PO SCH ×2 (09:00→09:12)
[2017-07-10] MEDS: LACTOBACILLUS RHAMNOSUS CAP PO SCH (09:12)
[2017-07-10] MEDS: ATENOLOL 50 MG TAB PO SCH (09:12)
[2017-07-10] MEDS: APIXABAN 5 MG TABLET PO SCH (09:12)
[2017-07-10] MEDS: FAMOTIDINE 20 MG TAB PO SCH (09:13)
[2017-07-10] MEDS: MUPIROCIN 2% 22 GM OINT TOP SCH (09:13)
[2017-07-10] MEDS: PAROXETINE 10 MG TAB PO SCH (09:13)
[2017-07-10] MEDS ORDERED: LAS20 PO (10:46)
[2017-07-10] MEDS ORDERED: LEVO250T35 PO (10:46)
--- NOTE | 2017-07-10 10:47 | PDOCDIS ---
Discharge Instructions DIAGNOSIS Discharge Diagnosis 1. Acute on chronic diastolic heart failure- improved 2. A-fib, rate controlled 3. History of hyperthyroidism 4. Hypertension 5. Acute hypercapnic respiratory failure- resolved CONDITION Patient Condition: Good HOME CARE INSTRUCTIONS: Diet Instructions: Low Fat /Cholesterol ACTIVITY: Activity Restrictions: No Restrictions FOLLOW UP/APPOINTMENTS Follow-up Plan 1. Follow up with Primary care physician in 1 week 2. Follow up with Program Support Specialist in 1-2 weeks. You will need to undergo a sleep study and pulmonary function test 3. Continue Antibiotics, Levaquin for 4 more days, starting tomorrow 4. Follow up with Binding Machine Operator as previously scheduled. Please inform your physician that you were started on Lasix daily 5. If symptoms worsen, return to the ED 1. seguimiento con el mdico de atencin primaria en 1 semana 2. seguimiento con neumlogo en 1-2 semanas. Usted tendr que someterse a un estudio del sueo y la prueba de funcin pulmonar 3. continuar con los antibiticos, Levaquin por 4 gannon ms, a partir de maana 4. seguimiento con el cardilogo gwen se program previamente. Por favor informe a troncoso mdico que se inici en Lasix Daily 5. Si los sntomas empeoran, regrese al Ed REFERRALS Other Referrals Honorio Culp MD Specialty: Pulmonary Medicine Office Address [address] [place] [address] Office DEMAR LUNDBERG MD Jul 10, 2017 10:47
--- NOTE | 2017-07-10 11:52 | PN ---
Date/Time of Note Date/Time of Note DATE: 07/10/17 TIME: 11:52 Assessment/Plan VTE Prophylaxis VTE Prophylaxis Intervention: SCD's, other Lines/Catheters IV Catheter Type (from Nrs): Saline Lock Urinary Cath still in place: No Assessment/Plan Assessment/Plan 1. Acute on chronic diastolic heart failure- resolved - Patient diuresing well and lower extremity edema improved significantly. No longer experiencing shortness of breath or requiring PRN BIPAP - on PO Lasix and has good output. - Follows with Dr. Hewitt as outpatient and has an appointment soon with him - Recent ECHO performed 3 months ago shows EF 60% - Doing well on room air 2. A-fib, rate controlled -Continue Eliquis and atenolol 3. History of hyperthyroidism -Continue Tapazole -Check TSH in a.m. 4. Hypertension: Blood pressure within goal -Continue antihypertensives adjustment as needed 5. Acute hypercapnic respiratory failure - Pulmonology on board and appreciate consultation - Will need outpatient PFT and Sleep Study - Continued on 4 more days of Levaquin. - Advised to try Stiolto Respimat since unable to use Combivent due to arthritis. 6. Disposition - Medically stable for discharge home and advised to follow up with Pulmonology. Subjective 24 Hr Interval Summary Free Text/Dictation patient doing well and states respiratory status has improved. No acute overnight events and saturating well on RA. Exam/Review of Systems Vital Signs Vitals Vital Signs Date Time Temp Pulse Resp B/P Pulse Ox O2 Delivery O2 Flow Rate FiO2 07/10/17 11:38 97.9 64 18 113/59 94 07/10/17 08:20 Nasal Cannula 2.0 07/08/17 09:40 35 Intake and Output 07/09/17 07/09/17 07/10/17 14:59 22:59 06:59 Intake Total 100 ml 600 ml 350 ml Output Total 1200 ml Balance 100 ml -600 ml 350 ml Exam Constitutional: alert, oriented, well developed, no acute distress Eyes: EOMI, PERRL ENMT: mucosa pink and moist Neck: non-tender, supple Respiratory: clear to auscultation, No crackles/rales, No diminished breath sounds, No wheezing Cardiovascular: regular rate, irregular rhythm, nl pulses, no murmur Gastrointestinal: non-tender, soft, No distended, No rebound or guarding Musculoskeletal: nl extremities to inspection Extremities: trace lower extremity No calf tenderness Neurological: DOG TRACK KENNEL MANAGER II-XII intact, nl mental status, nl speech Results Result Diagram: 07/09/1772307/09/17723 Medications Medications Current Medications Ondansetron HCl (Zofran Inj) 4 mg Q6H PRN IV NAUSEA AND/OR VOMITING; Start 08/12 at 05:30 Nitroglycerin (Nitroglycerin (Sl Tab) 0.4 Mg) 1 tab Q5M PRN SL CHEST PAIN; Start 07/08/17 at 05:30 Acetaminophen (Tylenol Tab) 650 mg Q6H PRN PO PAIN LEVEL 1-3 OR FEVER Last administered on 07/10/17 06:31; Admin Dose 650 MG; Start 07/08/17 at 05:30 Morphine Sulfate (morphine) 2 mg Q4H PRN IV PAIN LEVEL 7-10; Start 07/08/17 at 05:30 Apixaban (Eliquis) 5 mg BID PO Last administered on 07/10/17 09:12; Admin Dose 5 MG; Start 07/08/17 at 09:00 Atenolol (Tenormin) 100 mg DAILY PO Last administered on 07/10/17 09:12; Admin Dose 100 MG; Start 07/08/17 at 09:00 Atorvastatin Calcium (Lipitor) 20 mg QHS PO Last administered on 07/09/17 21: 37; Admin Dose 20 MG; Start 07/08/17 at 21:00 Docusate Sodium (Colace) 100 mg DAILY PO Last administered on 07/09/17 08:36 ; Admin Dose 100 MG; Start 07/08/17 at 09:00 Gabapentin (Neurontin) 100 mg QHS PO Last administered on 07/09/17 21:37; Admin Dose 100 MG; Start 07/08/17 at 21:00 Lactobacillus Acidophilus/ Rhamnosus (Culturelle) 1 cap BID PO Last administered on 07/10/17 09:12; Admin Dose 1 CAP; Start 07/08/17 at 09:00 Paroxetine HCl (Paxil) 10 mg DAILY PO Last administered on 07/10/17 09:13; Admin Dose 10 MG; Start 07/08/17 at 09:00 Tramadol HCl (Ultram) 50 mg Q4 PRN PO PAIN; Start 07/08/17 at 05:30 Influenza Virus Vaccine (Fluzone) 0.5 ml ONCE ONCE IM* ; Start 07/11/17 at 09: 00; Stop 07/11/17 at 09:01 Famotidine (Pepcid) 20 mg DAILY PO Last administered on 07/10/17 09:13; Admin Dose 20 MG; Start 07/09/17 at 09:00 Levofloxacin (Levaquin) 500 mg DAILY@06 PO Last administered on 07/10/17 06: 30; Admin Dose 500 MG; Start 07/10/17 at 06:00; Stop 07/10/17 at 23:00 Furosemide (Lasix) 20 mg DAILY PO Last administered on 07/10/17 09:13; Admin Dose 20 MG; Start 07/10/17 at 09:00 Levofloxacin (Levaquin) 250 mg DAILY@06 PO ; Start 07/11/17 at 06:00 Mupirocin (Bactroban) 1 applic BID TOP Last administered on 07/10/17 09:13; Admin Dose 1 APPLIC; Start 07/09/17 at 21:00 DEMAR LUNDBERG MD Jul 10, 2017 11:52
[2017-07-10] MEDS ORDERED: TIOT4MIS4 INHALATION (11:54)
--- NOTE | 2017-07-10 17:09 | DS ---
Date/Time of Note Date/Time of Note DATE: 07/10/17 TIME: 17:00 Discharge Summary Admission/Discharge Info Admit Date/Time Jul 08, 2017 at 01:32 Discharge Date/Time Jul 10, 2017 at 14:25 Discharge Diagnosis 1. Acute on chronic diastolic heart failure- improved 2. A-fib, rate controlled 3. History of hyperthyroidism 4. Hypertension 5. Acute hypercapnic respiratory failure- resolved Patient Condition: Good Consults Pulmonology Procedures PROCEDURE: XR Chest. CLINICAL INDICATION: Pneumonia TECHNIQUE: A single AP view of the chest was obtained. COMPARISON: Chest x-ray dated 07/07/2017 FINDINGS: No focal airspace opacification, pleural effusion or pneumothorax is seen. The cardiomediastinal silhouette is mildly enlarged. Calcifications are seen within the aortic arch. The osseous structures demonstrate senescent changes. IMPRESSION: 1. No radiographic evidence of acute cardiopulmonary disease. 2. Mild cardiomegaly and aortic atherosclerosis. Hx of Present Illness This is an 86-year-old female with a history of atrial fibrillation, hypothyroidism, chronic bronchitis, hypertension, diastolic dysfunction with preserved EF. Patient was brought to the ER for chest pain and shortness of breath. Patient is currently on BiPAP and as such information is mainly obtained from her daughter who was at the bedside. Patient started complaining of chest pain, shortness of breath and bilateral lower extremity swelling starting yesterday. According to her daughter prior to yesterday, she was in her usual state of health and was feeling well. She was admitted here 3 months ago for shortness of breath. At that time she was ruled out for ACS and a 2D echo showed abnormal diastolic dysfunction with preserved EF of 60%. Home medication does not include Lasix. When she presented to the ER today, vitals were stable. Her first troponin is negative. BNP 2500. WBC 13.3. Chest x-ray shows new mild bibasilar atelectasis. EKG was no ST elevation or depression. . Hospital Course Patient was admitted and started on BIPAP due to hypercapnic respiratory failure. Pulmonology was consulted and agreed with diuretics and started on IV antibiotics for possible pneumonia. Patients lower extremity edema and respiratory distress improved after dose of Lasix given in ED and I/O and weights monitored. Patient continue on IV lasix for one more day before transitioning to PO Lasix. Patient was able to be weaned off nasal cannula and denies any respiratory issues. Patient was instructed to follow up with Pulmonology as outpatient for PFT and sleep studies. Patient was discharged home in good condition with instructions to follow up with Hand Candle Dipper, PCP, and Pulmonology. Patient had issues with Combivent due to arthritis of hands and recommended to try Stiolto instead. Home Meds Active Scripts Tiotropium Br/Olodaterol HCl (Stiolto Respimat Inhal [place]) 4 Gm Mist.inhal, 2 PUFF INHALATION DAILY for 30 Days, #1 INHALER Prov:DEMAR LUNDBERG MD 07/10/17 Furosemide (Lasix) 20 Mg Tab, 20 MG PO DAILY for 30 Days, #30 TAB Prov:DEMAR LUNDBERG MD 07/10/17 Levofloxacin* (Levaquin*) 250 Mg Tablet, 250 MG PO DAILY@06 for 4 Days, #4 TAB Prov:DEMAR LUNDBERG MD 07/10/17 Lactobacillus Rhamnosus* (Culturelle*) 1 Each Cap.sprink, 1 CAP PO BID for 5 Days, CAP Prov:YISSEL STEWART 02/07/17 Atenolol* (Atenolol*) 50 Mg Tablet, 100 MG PO DAILY for 30 Days, TAB 2 Refills Prov:YISSEL STEWART 02/07/17 Tramadol HCl (Tramadol HCl) 50 Mg Tablet, 50 MG PO Q4 Y for PAIN, #20 TAB Prov:VEGA RUIZ 03/19/16 Reported Medications Gabapentin* (Gabapentin*) 100 Mg Capsule, 100 MG PO QHS, #90 CAP 02/05/17 Docusate Sodium* (Doc-Q-Lace*) 100 Mg Capsule, 100 MG PO DAILY, CAP 03/19/16 Atorvastatin Calcium* (Atorvastatin Calcium*) 20 Mg Tablet, 20 MG PO QHS, #30 TAB 03/19/16 Apixaban* (Eliquis*) 2.5 Mg Tablet, 5 MG PO BID, TAB 11/16/15 Paroxetine Hcl* (Paroxetine*) 10 Mg Tablet, 10 MG PO DAILY, TAB 11/16/15 Discontinued Scripts Albuterol/Ipratropium* (Combivent Respimat*) 20-100 Mcg/Inh - 4 Gm Aer.w.adap, 1 PUFF INHALATION QID, #1 INHALER use every 4 hours for 2 days then as needed only Prov:TERRY,BOLATITO M. 02/07/17 Follow-up Plan 1. Follow up with Primary care physician in 1 week 2. Follow up with Crutching Contractor in 1-2 weeks. You will need to undergo a sleep study and pulmonary function test 3. Continue Antibiotics, Levaquin for 4 more days, starting tomorrow 4. Follow up with Hand Candle Dipper as previously scheduled. Please inform your physician that you were started on Lasix daily 5. If symptoms worsen, return to the ED 1. seguimiento con el mdico de atencin primaria en 1 semana 2. seguimiento con neumlogo en 1-2 semanas. Usted tendr que someterse a un estudio del sueo y la prueba de funcin pulmonar 3. continuar con los antibiticos, Levaquin por 4 gannon ms, a partir de maana 4. seguimiento con el cardilogo gwen se program previamente. Por favor informe a troncoso mdico que se inici en Lasix Daily 5. Si los sntomas empeoran, regrese al Ed Primary Care Provider Juan Luis Cuevas Time spent on discharge: > 30 minutes DEMAR LUNDEBRG MD Jul 10, 2017 17:09
[2017-07-11] MEDS ORDERED: LEVOFLOXACIN 250 MG TAB PO SCH (06:00)
[2017-07-11] MEDS ORDERED: INFLUENZA VIRUS VACCINE 0.5 ML (DISPENSING) IM* ONE (09:00)
== END 2017-07-10 14:25 | disposition home or self-care (01) | DRG 291 ==
LOC: E/R 20:44 → ICU 07-08 01:32 → MS4 07-08 04:48
PROVIDERS: ADMIT Internal Medicine; ATTEND Internal Medicine
DX: I50.33 Acute on chronic diastolic (congestive) heart failure (principal); J96.02 Acute respiratory failure with hypercapnia; I48.91 Unspecified atrial fibrillation; D64.9 Anemia, unspecified; I11.0 Hypertensive heart disease with heart failure; E05.90 Thyrotoxicosis, unspecified without thyrotoxic crisis or storm; D72.829 Elevated white blood cell count, unspecified; G47.30 Sleep apnea, unspecified
CPT/HCPCS: 36415; 36600; 71010; 80048; 80053; 81001; 82550; 82553; 82803; 83735; 83880; 84100; 84439; 84443; 84484; 85025; 87081; 93005; 94660; 96374; 96375; 96376; J1940; J1956; J2270; J2405